=== PATIENT | male | born 1980 | race African-American/Black ===

== ENCOUNTER 2017-04-09 12:11 | Day surgery (SDC) | payer BC ==
[~2017-04-09 12:11] MED LIST: Lactated Ringers 1,000 ML IV SCH; Lidocaine 2% 5 ML SDV ONE; Propofol 200 MG/20 ML SDV ONE; fentaNYL 100 MCG/2 ML SDV ONE
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
--- NOTE | 2017-04-09 13:00 | PCM.OPNOTE ---
- General Post-Op/Procedure Note Date of Surgery/Procedure: 04/09/17 Operative Procedure(s): colonoscopy w bx Findings: see dict [id number] Pre Op Diagnosis: recurrent diverticulitis Post-Op Diagnosis: hemorrhoid Anesthesia Technique: Moderate sedation Primary Surgeon: Russell Christy Pathology: random colon bx; and bx at 25 cm when scope out for hyperemic Complications: None Condition: Good
[2017-04-09] MEDS ORDERED: fentaNYL 100 MCG/2 ML SDV ONE (13:11)
[2017-04-09] MEDS ORDERED: Propofol 200 MG/20 ML SDV ONE (13:13)
--- NOTE | 2017-04-09 13:34 | PCM.POSTAN ---
POST ANESTHESIA ASSESSMENT - MENTAL STATUS Mental Status: alert, oriented - RESPIRATORY Respiratory Status: respiratory rate WNL, airway patent, O2 saturation stable - CARDIOVASCULAR CV Status: pulse rate WNL, blood pressure stable - GASTROINTESTINAL GI Status: no symptoms - PAIN Pain Score: 0 - POST OP HYDRATION Hydration Status: adequate & stable
[2017-04-09 14:23] VITALS: BP 127/81
--- NOTE | 2017-04-09 18:32 | OR ---
SURGEON: Russell Christy MD DATE OF PROCEDURE: 04/09/2017 PREOPERATIVE DIAGNOSIS: Recurrent diverticulitis. POSTOPERATIVE DIAGNOSIS: External hemorrhoid. PROCEDURE PERFORMED: Colonoscopy with biopsy. FINDINGS: 1. The patient is easily sedated with SKIFF OPERATOR and Diprivan. The patient is soundly snoring. 2. Bowel prep is average to above average, very little liquid stool. 3. Colon was rather straight forward. Cecum indicated by ileocecal fold, one- to-one indentation, light immittance, and appendiceal orifice. Mucosa was examined upon scope pulling out. The patient has very mild colonic diverticulosis on the left colon. Otherwise, no polyp, mass, growth, inflammation, stricture, ulceration, bleeding, and at around 25 cm on the left colon, there was a little hyperemic biopsy done and also random biopsy done. The patient does not have internal hemorrhoids. The patient has mild external hemorrhoids. The patient would benefit from repeat colonoscopy 10 years from today or if clinically indicated otherwise, or if the biopsy indicated otherwise. DESCRIPTION OF PROCEDURE: The patient was taken to the endoscopy room. A time out was called, patient identified, and procedure identified. Diprivan was then administrated. Patient went from awake to sleep, hearing doctor talking or door closing is normal. Perineum inspection and digital examination were then performed. A well- lubricated colonoscope was gently inserted through the rectum, advanced past the rectosigmoid junction, the descending colon, splenic flexure, transverse colon, hepatic flexure, ascending colon, arrived to the cecum. Cecum was identified as dictated in the finding. Then the scope was carefully withdrawn while attention was paid to the mucosal surface for any abnormality. Air will be sucked out during the scope withdrawal. At the rectum, retroflexed to examine any rectal diseases, fistula or hemorrhoids. During mucosal examination, abnormality or polyp was noted; picture taken and biopsy performed. Patient tolerated procedure well. There were no intraoperative complications, and Dr. Christy was present throughout the whole procedure. As always, thank you for the kind referral. DENA / CHRISTINA /[id number]
== END 2017-04-09 14:22 | disposition home or self-care (01) ==
LOC: MW.SDS 12:11
PROVIDERS: ATTEND Surgery
DX: K31.89 Other diseases of stomach and duodenum (principal); I10 Essential (primary) hypertension; K64.4 Residual hemorrhoidal skin tags; K21.9 Gastro-esophageal reflux disease without esophagitis; E66.9 Obesity, unspecified; Z79.899 Other long term (current) drug therapy; Z98.890 Other specified postprocedural states; Z78.9 Other specified health status; F17.210 Nicotine dependence, cigarettes, uncomplicated; Z68.30 Body mass index [BMI] 30.0-30.9, adult
CPT/HCPCS: 45380; J3010; 88305; J2704

== ENCOUNTER 2017-12-01 17:16 | Inpatient (IN) | payer BC ==
[2017-12-01] MEDS ORDERED: Sodium Chloride 0.9% 2.5 ML Syringe FLUSH PRN (17:41)
[2017-12-01] MEDS ORDERED: Sodium Chloride 0.9% 1,000 ML IV ONE (17:41)
[2017-12-01] MEDS ORDERED: Sodium Chloride 0.9% 10 ML Syringe FLUSH PRN (17:41)
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
[2017-12-01 18:34] LABS: CHLORIDE,CL 107 mmol/L (98-110); SODIUM,NA 139 mmol/L (136-146)
[2017-12-01] MEDS ORDERED: Levofloxacin/Dextrose 5%-Water 750 MG in Premix Bag 1 BAG IV ONE (19:06)
[2017-12-01] MEDS ORDERED: metroNIDAZOLE/Normal Saline 500 MG in Premix Bag 1 BAG IV ONE (19:06)
[2017-12-01] MEDS ORDERED: HYDROmorphone 2 MG/ML Syringe IVPUSH ONE (19:10)
[2017-12-01] MEDS ORDERED: Ondansetron 4 MG/2 ML SDV IVPUSH ONE (19:10)
[2017-12-01] MEDS: HYDROmorphone 2 MG/ML Syringe IVPUSH PRN (22:30)
[2017-12-01] MEDS: Sodium Chloride 0.9% 1,000 ML IV SCH (22:33)
--- NOTE | 2017-12-01 22:51 | PCM.SN ---
- Free Text/Narrative Note: pt seen and examined, chart reviewed; another episode of diverticulitis flare up , now with "phlemontous inflammatory reaction" 1) npo w iv fluid and ppi 2) iv flagyl and levaquine 3) chat with intervention radiology see whether the plemon is amendable to ct guide drainage 4) will follow w you 5) if response with iv abx, will then start po diet; and dc home w at least 2 wks of po abx 6) fu colonoscopy 3 - 6 mos tks for the cx and care of this nice gentleman
[2017-12-01] MEDS: metroNIDAZOLE/Normal Saline 500 MG in Premix Bag 1 BAG IV SCH (22:54)
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
[2017-12-02] MEDS: HYDROmorphone 2 MG/ML Syringe IVPUSH PRN ×6 (04:23→21:24)
[2017-12-02] MEDS: amLODIPine 2.5 MG Tab PO SCH ×3 (05:28→21:29)
[2017-12-02] MEDS: metroNIDAZOLE/Normal Saline 500 MG in Premix Bag 1 BAG IV SCH ×3 (05:29→23:15)
[2017-12-02 06:42] LABS: CHLORIDE,CL 109 mmol/L (98-110); SODIUM,NA 139 mmol/L (136-146)
[2017-12-02] MEDS: Sodium Chloride 0.9% 1,000 ML IV SCH ×2 (06:51→14:47)
[2017-12-02] MEDS: Enoxaparin 40 MG/0.4 ML Syringe SUBCUT SCH (08:30)
--- NOTE | 2017-12-02 08:50 | PCM.PN ---
- General Info Date of Service: 12/02/17 Admission Dx/Problem (Free Text): Sigmoid diverticulitis Subjective Update: Continues to have pain to LLQ, slightly improved from admission. No N/V. He is passing flatus and had BM this am. No chest pain or SOB. Functional Status: Reports: Pain Controlled, Ambulating, Urinating - Review of Systems General: Reports: No Symptoms. Denies: Fever, Malaise Pulmonary: Reports: No Symptoms. Denies: Shortness of Breath Cardiovascular: Reports: No Symptoms. Denies: Chest Pain Gastrointestinal: Reports: Abdominal Pain (LLQ), Flatus. Denies: Nausea, Vomiting Genitourinary: Reports: No Symptoms. Denies: Dysuria, Frequency Musculoskeletal: Reports: No Symptoms Skin: Reports: No Symptoms Neurological: Reports: No Symptoms Psychiatric: Reports: No Symptoms - Patient Data Vitals - Most Recent: Last Vital Signs Temp 97.0 F 12/02/17 08:00 Pulse 65 12/02/17 08:00 Resp 22 H 12/02/17 08:00 BP 146/86 H 12/02/17 08:00 Pulse Ox 98 12/02/17 08:00 Weight - Most Recent: 113.398 kg I&O - Last 24 Hours: Intake & Output 12/01/17 12/02/17 12/02/17 22:59 06:59 14:59 Intake Total 646 Output Total 550 Balance 96 Lab Results Last 24 Hours: Laboratory Results - last 24 hr 12/02/17 12/02/17 Range/Units 05:43 05:43 WBC 7.81 (4.0-11.0) K/uL RBC 4.61 (4.50-5.90) M/uL Hgb 13.9 (13.0-17.0) g/dL Hct 42.7 (38.0-50.0) % MCV 92.6 (80.0-98.0) fL MCH 30.2 (27.0-32.0) pg MCHC 32.6 (31.0-37.0) g/dL RDW Std Deviation 48.8 (28.0-62.0) fl RDW Coeff of [place] 15 (11.0-15.0) % Plt Count 315 (150-400) K/uL MPV 11.10 (7.40-12.00) fL Neut % (Auto) 71.4 (48.0-80.0) % Lymph % (Auto) 18.1 (16.0-40.0) % [place] % (Auto) 8.7 (0.0-15.0) % Eos % (Auto) 1.5 (0.0-7.0) % Baso % (Auto) 0.3 (0.0-1.5) % Neut # (Auto) 5.6 (1.4-5.7) K/uL Lymph # (Auto) 1.4 (0.6-2.4) K/uL [place] # (Auto) 0.7 (0.0-0.8) K/uL Eos # (Auto) 0.1 (0.0-0.7) K/uL Baso # (Auto) 0.0 (0.0-0.1) K/uL Nucleated RBC % 0.0 /100WBC Nucleated RBCs # 0 K/uL Sodium 139 (136-146) mmol/L Potassium 4.3 (3.5-5.1) mmol/L Chloride 109 (98-110) mmol/L Carbon Dioxide 25 (21-31) mmol/L BUN 9 (6.0-23.0) mg/dL Creatinine 1.1 (0.6-1.5) mg/dL Est Cr Clr Drug Dosing 84.92 mL/min Estimated GFR (MDRD) > 60.0 ml/min Glucose 89 (60-110) mg/dL Calcium 8.5 L (8.8-10.8) mg/dL Med Orders - Current: Current Medications Amlodipine Besylate (Norvasc) 2.5 mg PO TID [facility] Last Admin: 12/02/17 05:28 Dose: 2.5 mg Enoxaparin Sodium (Lovenox) 40 mg SUBCUT DAILY [facility] Last Admin: 12/02/17 08:30 Dose: 40 mg Hydromorphone HCl (Dilaudid) 1 mg IVPUSH Q3H PRN PRN Reason: Pain Last Admin: 12/02/17 07:39 Dose: 1 mg Levofloxacin/Dextrose 750 mg/ (Premix) 150 mls @ 100 mls/hr IV Q24H [facility] Metronidazole 500 mg/ Premix 100 mls @ 100 mls/hr IV Q8H [facility] Last Admin: 12/02/17 05:29 Dose: 100 mls/hr Sodium Chloride (Normal Saline) 1,000 mls @ 125 mls/hr IV ASDIRECTED NIKHIL Last Admin: 12/02/17 06:51 Dose: 125 mls/hr Ondansetron HCl (Zofran) 4 mg IVPUSH Q4H PRN PRN Reason: Nausea/Vomiting Sodium Chloride (Saline Flush) 10 ml FLUSH ASDIRECTED PRN PRN Reason: Keep Vein Open Last Admin: 12/01/17 18:06 Dose: 10 ml Sodium Chloride (Saline Flush) 2.5 ml FLUSH ASDIRECTED PRN PRN Reason: Keep Vein Open Last Admin: 12/01/17 18:06 Dose: 2.5 ml Discontinued Medications Hydromorphone HCl (Dilaudid) 1 mg IVPUSH ONETIME ONE Stop: 12/01/17 19:11 Last Admin: 12/01/17 19:21 Dose: 1 mg Sodium Chloride (Normal Saline) 1,000 mls @ 999 mls/hr IV STAT ONE Stop: 12/01/17 18:41 Last Admin: 12/01/17 18:06 Dose: 999 mls/hr Levofloxacin/Dextrose 750 mg/ (Premix) 150 mls @ 100 mls/hr IV ONETIME ONE Stop: 12/01/17 20:35 Last Admin: 12/01/17 19:23 Dose: 100 mls/hr Metronidazole 500 mg/ Premix 100 mls @ 100 mls/hr IV ONETIME ONE Stop: 12/01/17 20:05 Last Admin: 12/01/17 19:23 Dose: 100 mls/hr Ondansetron HCl (Zofran) 4 mg IVPUSH ONETIME ONE Stop: 12/01/17 19:11 Last Admin: 12/01/17 19:21 Dose: 4 mg - Exam General: Alert, Oriented, Cooperative, No Acute Distress Neck: Supple Lungs: Clear to Auscultation, Normal Respiratory Effort Cardiovascular: Regular Rate, Regular Rhythm GI/Abdominal Exam: Normal Bowel Sounds, Soft, Distended, Tender (LLQ) Extremities: Normal Inspection, Normal Range of Motion, Non-Tender, No Pedal Edema, Normal Capillary Refill Neurological: No New Focal Deficit Psy/Mental Status: Alert, Normal Affect, Normal Mood - Problem List & Annotations (1) Sigmoid diverticulitis SNOMED Code(s): 699909755 Code(s): K57.32 - DVTRCLI OF LG INT W/O PERFORATION OR ABSCESS W/O BLEEDING Status: Acute Current Visit: Yes (2) Abdominal pain SNOMED Code(s): 50159819 Code(s): R10.9 - UNSPECIFIED ABDOMINAL PAIN Status: Acute Current Visit: Yes Qualifiers: Abdominal location: left lower quadrant Qualified Code(s): R10.32 - Left lower quadrant pain - Problem List Review Problem List Initiated/Reviewed/Updated: Yes - Plan Plan:: 37 yo male admitted for acute diverticulitis which failed outpatient management. 1. Sigmoid diverticulitis: Dr Christy consulted. Scant improvement overnight. Continue IV Flagyl and Levaquin. Keep NPO until pain free. Stool studies negative for Cdiff and campylobacter, Positive for WBCs. CT revealed "Marked wall thickening involving a long segment of the mid and proximal sigmoid colon with prominent surrounding phlegmonous stranding and moderate amounts of fluid. Underlying diverticula in this region. Findings consistent with acute diverticulitis but given the marked soft tissue prominence and wall thickening involving the affected segment of sigmoid colon the differential diagnostic consideration of a colonic mass which is mildly perforated such as a neoplasm cannot be excluded and therefore followup imaging or endoscopy is recommended after treatment." Dr Christy reported he will contact radiologist regarding report. He feels from his review of CT, there is no collection to drain, but awaiting Radiology. Dr Christy will notify Hospitalist team with any recommendations. 2. Possible UTI: CT scan suggested possible superimposed acute cystits so will get urine cultures. Asymptomatic. Levaquin as above. UC pending. VTE prophylaxis: Lovenox Dispo: 2-4 days pendinn improvement.
--- NOTE | 2017-12-02 13:47 | PCM.SURGPN ---
- General Info Date of Service: 12/02/17 Admission Diagnosis/Problem: Pain Pain Score: 4 - Review of Systems Gastrointestinal: Reports: No Symptoms - Patient Data Vitals - Most Recent: Last Vital Signs Temp 97.4 F 12/02/17 11:54 Pulse 54 L 12/02/17 11:54 Resp 20 12/02/17 11:54 BP 111/67 12/02/17 11:54 Pulse Ox 100 12/02/17 11:54 Weight - Most Recent: 250 lb I&O - Last 24 Hours: Intake & Output 12/01/17 12/02/17 12/02/17 22:59 06:59 14:59 Intake Total 646 Output Total 550 Balance 96 Lab Results Last 24 Hrs: Laboratory Results - last 24 hr 12/02/17 12/02/17 Range/Units 05:43 05:43 WBC 7.81 (4.0-11.0) K/uL RBC 4.61 (4.50-5.90) M/uL Hgb 13.9 (13.0-17.0) g/dL Hct 42.7 (38.0-50.0) % MCV 92.6 (80.0-98.0) fL MCH 30.2 (27.0-32.0) pg MCHC 32.6 (31.0-37.0) g/dL RDW Std Deviation 48.8 (28.0-62.0) fl RDW Coeff of [place] 15 (11.0-15.0) % Plt Count 315 (150-400) K/uL MPV 11.10 (7.40-12.00) fL Neut % (Auto) 71.4 (48.0-80.0) % Lymph % (Auto) 18.1 (16.0-40.0) % [place] % (Auto) 8.7 (0.0-15.0) % Eos % (Auto) 1.5 (0.0-7.0) % Baso % (Auto) 0.3 (0.0-1.5) % Neut # (Auto) 5.6 (1.4-5.7) K/uL Lymph # (Auto) 1.4 (0.6-2.4) K/uL [place] # (Auto) 0.7 (0.0-0.8) K/uL Eos # (Auto) 0.1 (0.0-0.7) K/uL Baso # (Auto) 0.0 (0.0-0.1) K/uL Nucleated RBC % 0.0 /100WBC Nucleated RBCs # 0 K/uL Sodium 139 (136-146) mmol/L Potassium 4.3 (3.5-5.1) mmol/L Chloride 109 (98-110) mmol/L Carbon Dioxide 25 (21-31) mmol/L BUN 9 (6.0-23.0) mg/dL Creatinine 1.1 (0.6-1.5) mg/dL Est Cr Clr Drug Dosing 84.92 mL/min Estimated GFR (MDRD) > 60.0 ml/min Glucose 89 (60-110) mg/dL Calcium 8.5 L (8.8-10.8) mg/dL [place] Results Last 24 Hrs: Microbiology 12/02/17 07:45 Campylobacter Antigen Assay - Final Stool / Feces NEGATIVE CAMPYLOBACTER AG 12/02/17 07:45 Clostridium difficile Toxin A&B (M) - Final Stool / Feces Negative for C.Diff Toxin/AG 12/02/17 07:45 Stool for WBCs - Final Stool / Feces POSITIVE FOR WBC'S Med Orders - Current: Current Medications Amlodipine Besylate (Norvasc) 2.5 mg PO TID [facility] Last Admin: 12/02/17 05:28 Dose: 2.5 mg Enoxaparin Sodium (Lovenox) 40 mg SUBCUT DAILY [facility] Last Admin: 12/02/17 08:30 Dose: 40 mg Hydromorphone HCl (Dilaudid) 1 mg IVPUSH Q3H PRN PRN Reason: Pain Last Admin: 12/02/17 10:48 Dose: 1 mg Levofloxacin/Dextrose 750 mg/ (Premix) 150 mls @ 100 mls/hr IV Q24H [facility] Metronidazole 500 mg/ Premix 100 mls @ 100 mls/hr IV Q8H [facility] Last Admin: 12/02/17 05:29 Dose: 100 mls/hr Sodium Chloride (Normal Saline) 1,000 mls @ 125 mls/hr IV ASDIRECTED [facility] Last Admin: 12/02/17 06:51 Dose: 125 mls/hr Ondansetron HCl (Zofran) 4 mg IVPUSH Q4H PRN PRN Reason: Nausea/Vomiting Sodium Chloride (Saline Flush) 10 ml FLUSH ASDIRECTED PRN PRN Reason: Keep Vein Open Last Admin: 12/01/17 18:06 Dose: 10 ml Sodium Chloride (Saline Flush) 2.5 ml FLUSH ASDIRECTED PRN PRN Reason: Keep Vein Open Last Admin: 12/01/17 18:06 Dose: 2.5 ml Discontinued Medications Hydromorphone HCl (Dilaudid) 1 mg IVPUSH ONETIME ONE Stop: 12/01/17 19:11 Last Admin: 12/01/17 19:21 Dose: 1 mg Sodium Chloride (Normal Saline) 1,000 mls @ 999 mls/hr IV STAT ONE Stop: 12/01/17 18:41 Last Admin: 12/01/17 18:06 Dose: 999 mls/hr Levofloxacin/Dextrose 750 mg/ (Premix) 150 mls @ 100 mls/hr IV ONETIME ONE Stop: 12/01/17 20:35 Last Admin: 12/01/17 19:23 Dose: 100 mls/hr Metronidazole 500 mg/ Premix 100 mls @ 100 mls/hr IV ONETIME ONE Stop: 12/01/17 20:05 Last Admin: 12/01/17 19:23 Dose: 100 mls/hr Ondansetron HCl (Zofran) 4 mg IVPUSH ONETIME ONE Stop: 12/01/17 19:11 Last Admin: 12/01/17 19:21 Dose: 4 mg - Exam General: Alert, Oriented GI/Abdominal Exam: Soft (tenderness at lower Left Quad, no rebound) - Problem List Review Problem List Initiated/Reviewed/Updated: Yes - My Orders Last 24 Hours: Active Orders 24 hr Category Date Time Status Antiembolic Devices [RC] PER UNIT ROUTINE Care 12/02/17 01:08 Active Oxygen Therapy [RC] PRN Care 12/02/17 01:07 Active Up ad Aletha [RC] ASDIRECTED Care 12/02/17 01:07 Active VTE/DVT Education [RC] PER UNIT ROUTINE Care 12/02/17 01:07 Active Vital Signs [RC] Q4H Care 12/02/17 01:07 Active Nothing per Oral Now Diet [DIET] Diet 12/02/17 Breakfast Active BMP [BASIC METABOLIC PANEL,BMP] [CHEM] AM Lab 12/03/17 05:11 Ordered BMP [BASIC METABOLIC PANEL,BMP] [CHEM] AM Lab 12/04/17 05:11 Ordered BMP [BASIC METABOLIC PANEL,BMP] [CHEM] AM Lab 12/05/17 05:11 Ordered CBC WITH AUTO DIFF [HEME] AM Lab 12/03/17 05:11 Ordered CBC WITH AUTO DIFF [HEME] AM Lab 12/04/17 05:11 Ordered CBC WITH AUTO DIFF [HEME] AM Lab 12/05/17 05:11 Ordered CULTURE STOOL + CAMPY+SHIGATOX [RM] Routine Lab 12/02/17 07:45 Results CULTURE URINE [RM] Routine Lab 12/01/17 17:56 Received Enoxaparin [Lovenox] Med 12/02/17 09:00 Active 40 mg SUBCUT DAILY HYDROmorphone [Dilaudid] Med 12/01/17 22:06 Active 1 mg IVPUSH Q3H PRN Levofloxacin/Dextrose 5%-Water [Levaquin in D5W 750 MG/ Med 12/02/17 22:15 Active 150 ML] 750 mg Premix Bag 1 bag IV Q24H Ondansetron [Zofran] Med 12/01/17 22:08 Active 4 mg IVPUSH Q4H PRN Sodium Chloride 0.9% [Normal Saline] 1,000 ml Med 12/01/17 22:15 Active IV ASDIRECTED amLODIPine [Norvasc] Med 12/02/17 06:00 Active 2.5 mg PO TID metroNIDAZOLE/Normal Saline [Flagyl 500 MG in NS 100 ML Med 12/01/17 22:15 Active ] 500 mg Premix Bag 1 bag IV Q8H Sequential Compression Device [OM.PC] Per Unit Routine Oth 12/02/17 01:08 Ordered Resuscitation Status Routine Resus Stat 12/02/17 01:07 Ordered Medication Orders Amlodipine Besylate (Norvasc) 2.5 mg PO TID [facility] Last Admin: 12/02/17 05:28 Dose: 2.5 mg Enoxaparin Sodium (Lovenox) 40 mg SUBCUT DAILY [facility] Last Admin: 12/02/17 08:30 Dose: 40 mg Hydromorphone HCl (Dilaudid) 1 mg IVPUSH Q3H PRN PRN Reason: Pain Last Admin: 12/02/17 10:48 Dose: 1 mg Admin: 12/02/17 07:39 Dose: 1 mg Admin: 12/02/17 04:23 Dose: 1 mg Admin: 12/01/17 22:30 Dose: 1 mg Levofloxacin/Dextrose 750 mg/ (Premix) 150 mls @ 100 mls/hr IV Q24H [facility] Metronidazole 500 mg/ Premix 100 mls @ 100 mls/hr IV Q8H [facility] Last Admin: 12/02/17 05:29 Dose: 100 mls/hr Admin: 12/01/17 22:54 Dose: Sodium Chloride (Normal Saline) 1,000 mls @ 125 mls/hr IV ASDIRECTED [facility] Last Admin: 12/02/17 06:51 Dose: 125 mls/hr Infusion: 12/02/17 06:33 Dose: 125 mls/hr Admin: 12/01/17 22:33 Dose: 125 mls/hr Ondansetron HCl (Zofran) 4 mg IVPUSH Q4H PRN PRN Reason: Nausea/Vomiting Sodium Chloride (Saline Flush) 10 ml FLUSH ASDIRECTED PRN PRN Reason: Keep Vein Open Last Admin: 12/01/17 18:06 Dose: 10 ml Sodium Chloride (Saline Flush) 2.5 ml FLUSH ASDIRECTED PRN PRN Reason: Keep Vein Open Last Admin: 12/01/17 18:06 Dose: 2.5 ml - Assessment Assessment (Free Text/Narrative):: will check w radiologist see whether it can be drained; continue iv abx/npo - Plan Plan (Free Text/Narrative):: will check w radiologist see whether it can be drained; continue iv abx/npo
--- NOTE | 2017-12-02 16:45 | CT ---
EXAM DATE: 12/01/17 PATIENT'S AGE: 37 Patient: EMILIA BRAMBILA Facility: [place], [place] Site . Site : 1980 Study: CT Abdomen/Pelvis WO CONT [id number]/28/2018 6:44:29 PM Ordering Physician: Ronaldo Staley Final Report: Indication : Left-sided abdominal and lower back pain. TECHNIQUE: CT of abdomen pelvis performed without oral IV contrast. 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 Mild scarring and atelectasis in the right middle lobe. Left hepatic lobe is somewhat atrophic. Small hiatal hernia. Lobulated left kidney with moderately prominent areas of scarring and cortical thinning. Multiple stones within calices of the left kidney. Mild stranding about the left kidney and urinary bladder which has mildly thickened wall. Findings suggest acute cystitis and ascending urinary tract infection such as acute pyelitis/pyelonephritis. Clinical and laboratory correlation recommended. Small left inguinal hernia containing only fat. Marked wall thickening involving a long segment of the mid and proximal sigmoid colon over 12-13 cm with surrounding moderate amounts moderately prominent amounts of phlegmonous inflammatory stranding and fluid. Some diverticula are seen in this region. Mild lymph node prominence in the surrounding sigmoid mesentery. No discrete abscess or free air. Findings would be consistent with acute diverticulitis however the prominent wall thickening and soft tissue prominence involving the affected segment of sigmoid colon is more prominent than typical and thus follow-up is recommended to exclude an underlying colonic and lesion or neoplasm which has mildly perforated. The inflammatory disease surrounding the sigmoid colon abuts the urinary bladder and is likely the cause of the cystitis. No air in the urinary bladder to suggest fistula at this time. Mildly enlarged lymph node along the left distal external iliac chain on image 112 may be related to the colonic pathology. Small lymph nodes in the abdominal and pelvic retroperitoneum elsewhere. Remainder negative. IMPRESSION: 1. Marked wall thickening involving a long segment of the mid and proximal sigmoid colon with prominent surrounding phlegmonous stranding and moderate amounts of fluid. Underlying diverticula in this region. Findings consistent with acute diverticulitis but given the marked soft tissue prominence and wall thickening involving the affected segment of sigmoid colon the differential diagnostic consideration of a colonic mass which is mildly perforated such as a neoplasm cannot be excluded and therefore followup imaging or endoscopy is recommended after treatment. 2. Mild lymph node prominence in the left external iliac chain and sigmoid mesentery likely related to the colonic pathology. 3. Mild soft tissue stranding about the urinary bladder and left kidney with urinary bladder wall being slightly irregular and thickened. Findings suggest superimposed acute cystitis and ascending left urinary tract infection such as acute pyelitis/pyelonephritis. 4. Lobulated appearance of the left kidney consistent with moderate to marked cortical thinning and scarring. 5. Multiple stones in the left kidney. 6. Other findings as above. Please note that all CT scans at this facility use dose modulation, iterative reconstruction, and/or weight-based dosing when appropriate to reduce radiation dose to as low as reasonably achievable. Dictated by Abimael Terry MD @ Dec 01 2017 6:52PM (Electronic Signature) Report Signed by Proxy. MTDD
[2017-12-02] MEDS: Levofloxacin/Dextrose 5%-Water 750 MG in Premix Bag 1 BAG IV SCH (21:30)
[2017-12-03] MEDS: HYDROmorphone 2 MG/ML Syringe IVPUSH PRN ×7 (00:32→21:07)
[2017-12-03] MEDS: Sodium Chloride 0.9% 1,000 ML IV SCH ×3 (00:37→18:47)
[2017-12-03 05:52] LABS: CHLORIDE,CL 106 mmol/L (98-110); SODIUM,NA 139 mmol/L (136-146)
[2017-12-03] MEDS: amLODIPine 2.5 MG Tab PO SCH ×3 (06:40→21:08)
[2017-12-03] MEDS: metroNIDAZOLE/Normal Saline 500 MG in Premix Bag 1 BAG IV SCH ×3 (06:40→21:14)
--- NOTE | 2017-12-03 08:16 | PCM.PN ---
- General Info Date of Service: 12/03/17 Admission Dx/Problem (Free Text): Sigmoid diverticulitis Subjective Update: Pain improving to LLQ, now 6/10 was 10/10 most yesterday per patient. No N/V. He is passing flatus. No chest pain or SOB. Functional Status: Reports: Pain Controlled, Tolerating Diet, Ambulating, Urinating - Review of Systems Pulmonary: Reports: No Symptoms. Denies: Shortness of Breath Cardiovascular: Reports: No Symptoms. Denies: Chest Pain Gastrointestinal: Reports: Abdominal Pain (LLQ, but improved greatly from yesterday.), Flatus. Denies: Constipation, Diarrhea, Nausea, Vomiting Genitourinary: Reports: No Symptoms. Denies: Dysuria, Frequency, Burning, Pain Musculoskeletal: Reports: No Symptoms Neurological: Reports: No Symptoms Psychiatric: Reports: No Symptoms - Patient Data Vitals - Most Recent: Last Vital Signs Temp 98.1 F 12/03/17 07:45 Pulse 69 12/03/17 07:45 Resp 18 12/03/17 07:45 BP 134/78 12/03/17 07:45 Pulse Ox 95 12/03/17 07:45 Weight - Most Recent: 113.398 kg I&O - Last 24 Hours: Intake & Output 12/02/17 12/03/17 12/03/17 22:59 06:59 14:59 Intake Total 1384 885 Output Total 1300 1200 Balance 84 -315 Lab Results Last 24 Hours: Laboratory Results - last 24 hr 12/03/17 12/03/17 Range/Units 05:08 05:08 WBC 10.19 (4.0-11.0) K/uL RBC 4.60 (4.50-5.90) M/uL Hgb 13.9 (13.0-17.0) g/dL Hct 42.4 (38.0-50.0) % MCV 92.2 (80.0-98.0) fL MCH 30.2 (27.0-32.0) pg MCHC 32.8 (31.0-37.0) g/dL RDW Std Deviation 48.7 (28.0-62.0) fl RDW Coeff of [place] 14 (11.0-15.0) % Plt Count 324 (150-400) K/uL MPV 11.10 (7.40-12.00) fL Neut % (Auto) 84.4 H (48.0-80.0) % Lymph % (Auto) 7.9 L (16.0-40.0) % [place] % (Auto) 6.8 (0.0-15.0) % Eos % (Auto) 0.7 (0.0-7.0) % Baso % (Auto) 0.2 (0.0-1.5) % Neut # (Auto) 8.6 H (1.4-5.7) K/uL Lymph # (Auto) 0.8 (0.6-2.4) K/uL [place] # (Auto) 0.7 (0.0-0.8) K/uL Eos # (Auto) 0.1 (0.0-0.7) K/uL Baso # (Auto) 0.0 (0.0-0.1) K/uL Nucleated RBC % 0.0 /100WBC Nucleated RBCs # 0 K/uL Sodium 139 (136-146) mmol/L Potassium 4.6 (3.5-5.1) mmol/L Chloride 106 (98-110) mmol/L Carbon Dioxide 25 (21-31) mmol/L BUN 12 (6.0-23.0) mg/dL Creatinine 1.1 (0.6-1.5) mg/dL Est Cr Clr Drug Dosing 84.92 mL/min Estimated GFR (MDRD) > 60.0 ml/min Glucose 76 (60-110) mg/dL Calcium 8.8 (8.8-10.8) mg/dL Segundo Results Last 24 Hours: Microbiology 12/02/17 07:45 Campylobacter Antigen Assay - Final Stool / Feces NEGATIVE CAMPYLOBACTER AG 12/02/17 07:45 Clostridium difficile Toxin A&B (M) - Final Stool / Feces Negative for C.Diff Toxin/AG 12/02/17 07:45 Stool for WBCs - Final Stool / Feces POSITIVE FOR WBC'S Med Orders - Current: Current Medications Amlodipine Besylate (Norvasc) 2.5 mg PO TID [facility] Last Admin: 12/03/17 06:40 Dose: 2.5 mg Enoxaparin Sodium (Lovenox) 40 mg SUBCUT DAILY [facility] Last Admin: 12/02/17 08:30 Dose: 40 mg Hydromorphone HCl (Dilaudid) 1 mg IVPUSH Q3H PRN PRN Reason: Pain Last Admin: 12/03/17 06:40 Dose: 1 mg Levofloxacin/Dextrose 750 mg/ (Premix) 150 mls @ 100 mls/hr IV Q24H [facility] Last Admin: 12/02/17 21:30 Dose: 100 mls/hr Metronidazole 500 mg/ Premix 100 mls @ 100 mls/hr IV Q8H [facility] Last Admin: 12/03/17 06:40 Dose: 100 mls/hr Sodium Chloride (Normal Saline) 1,000 mls @ 125 mls/hr IV ASDIRECTED [facility] Last Admin: 12/03/17 00:37 Dose: 125 mls/hr Ondansetron HCl (Zofran) 4 mg IVPUSH Q4H PRN PRN Reason: Nausea/Vomiting Sodium Chloride (Saline Flush) 10 ml FLUSH ASDIRECTED PRN PRN Reason: Keep Vein Open Last Admin: 12/01/17 18:06 Dose: 10 ml Sodium Chloride (Saline Flush) 2.5 ml FLUSH ASDIRECTED PRN PRN Reason: Keep Vein Open Last Admin: 12/01/17 18:06 Dose: 2.5 ml Discontinued Medications Hydromorphone HCl (Dilaudid) 1 mg IVPUSH ONETIME ONE Stop: 12/01/17 19:11 Last Admin: 12/01/17 19:21 Dose: 1 mg Sodium Chloride (Normal Saline) 1,000 mls @ 999 mls/hr IV STAT ONE Stop: 12/01/17 18:41 Last Admin: 12/01/17 18:06 Dose: 999 mls/hr Levofloxacin/Dextrose 750 mg/ (Premix) 150 mls @ 100 mls/hr IV ONETIME ONE Stop: 12/01/17 20:35 Last Admin: 12/01/17 19:23 Dose: 100 mls/hr Metronidazole 500 mg/ Premix 100 mls @ 100 mls/hr IV ONETIME ONE Stop: 12/01/17 20:05 Last Admin: 12/01/17 19:23 Dose: 100 mls/hr Ondansetron HCl (Zofran) 4 mg IVPUSH ONETIME ONE Stop: 12/01/17 19:11 Last Admin: 12/01/17 19:21 Dose: 4 mg - Exam General: Alert, Oriented, Cooperative, No Acute Distress Neck: Supple Lungs: Clear to Auscultation, Normal Respiratory Effort Cardiovascular: Regular Rate, Regular Rhythm GI/Abdominal Exam: Normal Bowel Sounds, Soft, Tender (scant to LLQ) Extremities: Normal Inspection, Normal Range of Motion, Non-Tender, No Pedal Edema, Normal Capillary Refill Neurological: No New Focal Deficit Psy/Mental Status: Alert, Normal Affect, Normal Mood - Problem List & Annotations (1) Sigmoid diverticulitis SNOMED Code(s): 610725185 Code(s): K57.32 - DVTRCLI OF LG INT W/O PERFORATION OR ABSCESS W/O BLEEDING Status: Acute Current Visit: Yes (2) Abdominal pain SNOMED Code(s): 12782092 Code(s): R10.9 - UNSPECIFIED ABDOMINAL PAIN Status: Acute Current Visit: Yes Qualifiers: Abdominal location: left lower quadrant Qualified Code(s): R10.32 - Left lower quadrant pain - Problem List Review Problem List Initiated/Reviewed/Updated: Yes - My Orders Last 24 Hours: My Active Orders 12/04/17 05:11 BMP [BASIC METABOLIC PANEL,BMP] [CHEM] AM CBC WITH AUTO DIFF [HEME] AM 12/05/17 05:11 BMP [BASIC METABOLIC PANEL,BMP] [CHEM] AM CBC WITH AUTO DIFF [HEME] AM - Plan Plan:: 37 yo male admitted for acute diverticulitis which failed outpatient management. 1. Sigmoid diverticulitis: Continued improvement, pain better, but still needing IV pain medication. Continue NPO until pain free. Continue IV Flagyl and Levaquin. Stool studies negative 2. Possible UTI: Asymptomatic. Levaquin as above. UC pending. VTE prophylaxis: Lovenox Dispo: 2-4 days pending improvement.
[2017-12-03] MEDS: Enoxaparin 40 MG/0.4 ML Syringe SUBCUT SCH (09:01)
[2017-12-03] MEDS: Ondansetron 4 MG/2 ML SDV IVPUSH PRN (21:06)
[2017-12-03] MEDS: Levofloxacin/Dextrose 5%-Water 750 MG in Premix Bag 1 BAG IV SCH (22:12)
[2017-12-04] MEDS: HYDROmorphone 2 MG/ML Syringe IVPUSH PRN ×3 (01:17→10:20)
[2017-12-04 04:41] LABS: CHLORIDE,CL 104 mmol/L (98-110); SODIUM,NA 138 mmol/L (136-146)
[2017-12-04] MEDS: metroNIDAZOLE/Normal Saline 500 MG in Premix Bag 1 BAG IV SCH ×3 (05:30→21:38)
[2017-12-04] MEDS: amLODIPine 2.5 MG Tab PO SCH ×3 (05:31→21:47)
[2017-12-04] MEDS: Ondansetron 4 MG/2 ML SDV IVPUSH PRN (05:32)
[2017-12-04] MEDS: Sodium Chloride 0.9% 1,000 ML IV SCH ×2 (05:34→16:27)
[2017-12-04] MEDS: Enoxaparin 40 MG/0.4 ML Syringe SUBCUT SCH (08:59)
--- NOTE | 2017-12-04 09:38 | CONS ---
DATE OF CONSULTATION: 12/01/2017 DATE OF : 1980 PRIMARY CARE PHYSICIAN: None PCP Consult was called. The patient was seen shortly after. CONCERNING QUESTION: Diverticulitis HISTORY OF PRESENT ILLNESS: The patient is a 37-year-old gentleman, known to my service, had colonoscopy done about 6 months ago by myself and saw a few diverticula, but no signs or symptoms of diverticulitis and admit for recurrent diverticulitis. The patient remarked that he has on and off left lower quadrant pain for a long time like more than 2+ years, pain goes away and come back and goes away and come back, and this time it has been going on for a while. Again, I mean he only noted a while, he cannot say one week, one month, or one year. He went to see a local doctor and was treated with po Flagyl and Levaquin. It does not seem to help and now he is seeking help in the emergency room. Workup included CAT scan, which shows thickening of the bowel wall on the sigmoid colon and with significant phlegmonous inflammatory reaction and also possible left hip disease and possible left urinary tract stones. The patient was then admitted for further management and consult Surgery for help in the management. Currently, the patient still hurting, but doing slightly better. The patient denies fever, nausea, or vomiting. PAST MEDICAL HISTORY: Denied diabetic, [place], CVA. The patient does have hypertension. Denied prior abdominal surgery except for colonoscopy done by myself. PHYSICAL EXAMINATION: GENERAL: Very pleasant gentleman in no acute distress. HEENT: Normocephalic and atraumatic. Sclerae anicteric. LUNGS: Clear to auscultation. HEART: Regular rate and rhythm. ABDOMEN: Soft. Nondistended. No pulsating. Tender in the midline abdominal structure. No surgical scar. Exquisite tenderness on the left lower quadrant very very low, and a little bit high up, he has no pain interesting, but when you turn to the inguinal crease, he is screaming in pain. LABORATORY DATA AND X-RAYS: White count on admission was 11. CAT scan report is pending. IMPRESSION: Friable diverticulitis, likely chronic. On preliminary report, CAT scan does not seem to have perforation. The patient would benefit from management of recurrent diverticulitis by medical treatment, IV Flagyl and Levaquin, Flagyl 500 IV q.i.d. 4 times a day and Levaquin 750 once a day IV antibiotic until pain managed. The patient can then start oral diet and then probably follow with 2 more week of oral antibiotic for a total treatment of 3 weeks. We will review the CAT scan with Radiology tomorrow to see whether phlegmonous inflammatory reaction can be amendable to CT-guided drainage that will help in speed out the surface. For the time being, conservative management, IV antibiotic, n.p.o., IV fluid hydration, and possible CT-guided drainage tomorrow. I also discussed with the patient. If failed medical management, we will have emergency surgery and that is probably Major procedure that will require removal of the diseased colon and give him a colostomy. We address more discussion in this aspect if the patient failed conservative medical management. DENA / CHRISTINA /[id number] SAM
--- NOTE | 2017-12-04 11:36 | PCM.PN ---
- General Info Date of Service: 12/04/17 Admission Dx/Problem (Free Text): Sigmoid diverticulitis Subjective Update: Doing well this morning, pain is improving, but feels he still needs IV pain medication. No increase in pain since CL diet started. No chest pain or SOB. felt some burning at the end of his urine stream today, no penile drainage and no testicular pain. Functional Status: Reports: Tolerating Diet, Ambulating (encouraged to be ambulating more, but nursing reports patient refuses and lays in bed and sleeps) , Urinating. Denies: Pain Controlled - Review of Systems General: Reports: No Symptoms. Denies: Fever, Fatigue, Malaise Pulmonary: Reports: No Symptoms. Denies: Shortness of Breath Cardiovascular: Reports: No Symptoms. Denies: Chest Pain Gastrointestinal: Reports: Abdominal Pain (LLQ, much improved.), Flatus. Denies : Nausea, Vomiting Genitourinary: Reports: Burning. Denies: Dysuria, Frequency, Pain Neurological: Reports: No Symptoms. Denies: Confusion Psychiatric: Reports: No Symptoms. Denies: Confusion - Patient Data Vitals - Most Recent: Last Vital Signs Temp 97.7 F 12/04/17 08:00 Pulse 75 12/04/17 08:00 Resp 18 12/04/17 08:00 BP 114/77 12/04/17 08:00 Pulse Ox 97 12/04/17 08:00 Weight - Most Recent: 113.398 kg I&O - Last 24 Hours: Intake & Output 12/03/17 12/04/17 12/04/17 22:59 06:59 14:59 Intake Total 1012 1340 Output Total 1380 1450 Balance -368 -110 Lab Results Last 24 Hours: Laboratory Results - last 24 hr 12/04/17 12/04/17 Range/Units 03:52 03:52 WBC 10.09 (4.0-11.0) K/uL RBC 4.69 (4.50-5.90) M/uL Hgb 14.3 (13.0-17.0) g/dL Hct 42.8 (38.0-50.0) % MCV 91.3 (80.0-98.0) fL MCH 30.5 (27.0-32.0) pg MCHC 33.4 (31.0-37.0) g/dL RDW Std Deviation 47.1 (28.0-62.0) fl RDW Coeff of [place] 14 (11.0-15.0) % Plt Count 312 (150-400) K/uL MPV 10.80 (7.40-12.00) fL Neut % (Auto) 74.0 (48.0-80.0) % Lymph % (Auto) 14.4 L (16.0-40.0) % [place] % (Auto) 11.1 (0.0-15.0) % Eos % (Auto) 0.3 (0.0-7.0) % Baso % (Auto) 0.2 (0.0-1.5) % Neut # (Auto) 7.5 H (1.4-5.7) K/uL Lymph # (Auto) 1.5 (0.6-2.4) K/uL [place] # (Auto) 1.1 H (0.0-0.8) K/uL Eos # (Auto) 0.0 (0.0-0.7) K/uL Baso # (Auto) 0.0 (0.0-0.1) K/uL Nucleated RBC % 0.0 /100WBC Nucleated RBCs # 0 K/uL Sodium 138 (136-146) mmol/L Potassium 4.8 (3.5-5.1) mmol/L Chloride 104 (98-110) mmol/L Carbon Dioxide 25 (21-31) mmol/L BUN 11 (6.0-23.0) mg/dL Creatinine 1.2 (0.6-1.5) mg/dL Est Cr Clr Drug Dosing 77.84 mL/min Estimated GFR (MDRD) > 60.0 ml/min Glucose 83 (60-110) mg/dL Calcium 9.2 (8.8-10.8) mg/dL Seg[place] Results Last 24 Hours: Microbiology 12/02/17 07:45 Campylobacter Antigen Assay - Final Stool / Feces NEGATIVE CAMPYLOBACTER AG - Final NEGATIVE FOR SHIGA TOXIN 1 - Final NEGATIVE FOR SHIGA TOXIN 2 Med Orders - Current: Current Medications Amlodipine Besylate (Norvasc) 2.5 mg PO TID [facility] Last Admin: 12/04/17 05:31 Dose: 2.5 mg Enoxaparin Sodium (Lovenox) 40 mg SUBCUT DAILY [facility] Last Admin: 12/04/17 08:59 Dose: 40 mg Hydromorphone HCl (Dilaudid) 1 mg IVPUSH Q4H PRN PRN Reason: Pain Last Admin: 12/04/17 10:20 Dose: 1 mg Levofloxacin/Dextrose 750 mg/ (Premix) 150 mls @ 100 mls/hr IV Q24H [facility] Last Admin: 12/03/17 22:12 Dose: 100 mls/hr Metronidazole 500 mg/ Premix 100 mls @ 100 mls/hr IV Q8H [facility] Last Admin: 12/04/17 05:30 Dose: 100 mls/hr Sodium Chloride (Normal Saline) 1,000 mls @ 125 mls/hr IV ASDIRECTED [facility] Last Admin: 12/04/17 05:34 Dose: 125 mls/hr Ondansetron HCl (Zofran) 4 mg IVPUSH Q4H PRN PRN Reason: Nausea/Vomiting Last Admin: 12/04/17 05:32 Dose: 4 mg Sodium Chloride (Saline Flush) 10 ml FLUSH ASDIRECTED PRN PRN Reason: Keep Vein Open Last Admin: 12/01/17 18:06 Dose: 10 ml Sodium Chloride (Saline Flush) 2.5 ml FLUSH ASDIRECTED PRN PRN Reason: Keep Vein Open Last Admin: 12/01/17 18:06 Dose: 2.5 ml Discontinued Medications Hydromorphone HCl (Dilaudid) 1 mg IVPUSH ONETIME ONE Stop: 12/01/17 19:11 Last Admin: 12/01/17 19:21 Dose: 1 mg Hydromorphone HCl (Dilaudid) 1 mg IVPUSH Q3H PRN PRN Reason: Pain Last Admin: 12/03/17 13:32 Dose: 1 mg Sodium Chloride (Normal Saline) 1,000 mls @ 999 mls/hr IV STAT ONE Stop: 12/01/17 18:41 Last Admin: 12/01/17 18:06 Dose: 999 mls/hr Levofloxacin/Dextrose 750 mg/ (Premix) 150 mls @ 100 mls/hr IV ONETIME ONE Stop: 12/01/17 20:35 Last Admin: 12/01/17 19:23 Dose: 100 mls/hr Metronidazole 500 mg/ Premix 100 mls @ 100 mls/hr IV ONETIME ONE Stop: 12/01/17 20:05 Last Admin: 12/01/17 19:23 Dose: 100 mls/hr Ondansetron HCl (Zofran) 4 mg IVPUSH ONETIME ONE Stop: 12/01/17 19:11 Last Admin: 12/01/17 19:21 Dose: 4 mg - Exam General: Alert, Oriented, Cooperative, No Acute Distress Lungs: Clear to Auscultation, Normal Respiratory Effort Cardiovascular: Regular Rate, Regular Rhythm GI/Abdominal Exam: Normal Bowel Sounds, Soft, Non-Tender (no pain ellicted from palpation. ), No Organomegaly, No Distention, No Abnormal Bruit, No Mass, Pelvis Stable Extremities: Normal Inspection, Normal Range of Motion, Non-Tender, No Pedal Edema, Normal Capillary Refill Neurological: No New Focal Deficit Psy/Mental Status: Alert, Normal Affect, Normal Mood - Problem List & Annotations (1) Sigmoid diverticulitis SNOMED Code(s): 028558832 Code(s): K57.32 - DVTRCLI OF LG INT W/O PERFORATION OR ABSCESS W/O BLEEDING Status: Acute Current Visit: Yes (2) Abdominal pain SNOMED Code(s): 62089306 Code(s): R10.9 - UNSPECIFIED ABDOMINAL PAIN Status: Acute Current Visit: Yes Qualifiers: Abdominal location: left lower quadrant Qualified Code(s): R10.32 - Left lower quadrant pain - Problem List Review Problem List Initiated/Reviewed/Updated: Yes - My Orders Last 24 Hours: My Active Orders 12/03/17 16:18 HYDROmorphone [Dilaudid] 1 mg IVPUSH Q4H PRN 12/04/17 Breakfast Clear Liquid Diet [DIET] 12/05/17 05:11 BMP [BASIC METABOLIC PANEL,BMP] [CHEM] AM CBC WITH AUTO DIFF [HEME] AM - Plan Plan:: 37 yo male admitted for acute diverticulitis which failed outpatient management. 1. Sigmoid diverticulitis: Continues to improve today, no pain to palpation. Reports he is still needing pain medications, but pain appears comfortable and sleeping. Will stop IV dilaudid and monitor. FL diet now. Continue IV Flagyl and Levaquin. Stool studies negative 2. Possible UTI: UC mixed lucina 1,000. Some burning today. Continue Levaquin as above. VTE prophylaxis: Lovenox Dispo: later today or in am.
[2017-12-04] MEDS ORDERED: HYDROmorphone 2 MG/ML Syringe IVPUSH ONE (15:57)
[2017-12-04] MEDS: Ketorolac 15 MG/ML SDV IVPUSH PRN (21:37)
[2017-12-04] MEDS: Levofloxacin/Dextrose 5%-Water 750 MG in Premix Bag 1 BAG IV SCH (23:30)
[2017-12-05] MEDS: amLODIPine 2.5 MG Tab PO SCH (05:29)
[2017-12-05] MEDS: metroNIDAZOLE/Normal Saline 500 MG in Premix Bag 1 BAG IV SCH (05:30)
[2017-12-05] MEDS: Sodium Chloride 0.9% 1,000 ML IV SCH (05:38)
[2017-12-05] MEDS: Ketorolac 15 MG/ML SDV IVPUSH PRN (06:31)
--- NOTE | 2017-12-05 07:16 | PCM.DCSUM1 ---
Discharge Summary - Hospital Course Brief History: 37 yo male with pmh of recurrent diverticulitis who has started on ciprofloxacin and flagyl on November 21 for diverticulitis. He presents to the ED tonight with increasing left lower quadrant pain and diarrhea. CT scan of abdomen reports marked wall thickening infolving a long segment of the mid and proximal sigmoid colon with prominent surroundings phlegmonous stranding and moderate amounts of fluid. - Discharge Data Discharge Date: 12/05/17 Discharge Disposition: Home, Self-Care 01 Condition: Stable - Discharge Diagnosis/Problem(s) (1) Sigmoid diverticulitis SNOMED Code(s): 472801307 ICD Code: K57.32 - DVTRCLI OF LG INT W/O PERFORATION OR ABSCESS W/O BLEEDING Status: Acute (2) Abdominal pain SNOMED Code(s): 03104458 ICD Code: R10.9 - UNSPECIFIED ABDOMINAL PAIN Status: Acute Qualifiers: Abdominal location: left lower quadrant Qualified Code(s): R10.32 - Left lower quadrant pain - Patient Instructions Diet: Full Liquid Diet (for next 2-3 days then slowly advance to GI soft, lower fiber for 2 weeks. ), GI Soft/Low Residue/Low Fiber Activity: As Tolerated, No Strenuous Activities, Rest and Relax Today Driving: Do Not Drive Showering/Bathing: May Shower Notify Provider of: Fever, Increased Pain, Swelling and Redness, Drainage, Nausea and/or Vomiting - Discharge Plan Prescriptions/Med Rec: Levofloxacin [Levaquin] 750 mg PO DAILY #11 tab metroNIDAZOLE [Flagyl] 500 mg PO TID #33 tablet Home Medications: Home Meds amLODIPine Besylate [Norvasc] 2.5 mg PO TID 04/04/17 [History] Levofloxacin [Levaquin] 750 mg PO DAILY #11 tab 12/04/17 [Rx] metroNIDAZOLE [Flagyl] 500 mg PO TID #33 tablet 12/04/17 [Rx] Patient Handouts: Diverticulitis, [id number], Levofloxacin tablets, Metronidazole tablets or capsules Referrals: Russell Christy MD [Physician] - 12/18/17 9:15 am (Please arrive 15 minutes early for checking in. ) Antwon Zhao Jr, PA-C [Ordering Only Provider] - 12/11/17 1:30 pm (Please arrive 15 minutes early.) - Discharge Summary/Plan Comment DC Time >30 min.: No Discharge Summary/Plan Comment: Discharge Diagnoses: sigmoid diverticulitis Endy was admitted due to failed outpatient management of sigmoid diverticulitis. He was treated with Levaquin and Flagyl along with bowel rest and pain medication. He continued to improved, Dr Christy general surgery consulted due to CT scant revealing "Marked wall thickening involving a long segment of the mid and proximal sigmoid colon with prominent surrounding phlegmonous stranding and moderate amounts of fluid. Underlying diverticula in this region. Findings consistent with acute diverticulitis but given the marked soft tissue prominence and wall thickening involving the affected segment of sigmoid colon the differential diagnostic consideration of a colonic mass which is mildly perforated such as a neoplasm cannot be excluded and therefore followup imaging or endoscopy is recommended after treatment". No drainage was needed. He was transitioned off pain medications and allowed CL diet. He tolerated well and will be discharged home today. He will be continued on Levaquin 750 mg and Flagyl TID for 11 more days. He will follow up with Dr Christy and have repeat colonoscopy. He is also to follow up with PCP in 1 week to insure he is continuing to improve. He was encouraged to stay FL diet for next few days then slowly transition to GI soft low fiber for next two weeks then to regular, high fiber. He is to return to ED or clinic if concerns should arise. - General Info Date of Service: 12/05/17 Admission Dx/Problem (Free Text: Sigmoid diverticulitis Subjective Update: DOing well this morning, eager for discharge tolerating diet well. No abdominal pain. No chest pain or SOB. passing flatus. Functional Status: Reports: Pain Controlled, Tolerating Diet, Ambulating, Urinating - Review of Systems HEENT: Reports: No Symptoms. Denies: Headaches, Sore Throat, Visual Changes Pulmonary: Reports: No Symptoms. Denies: Shortness of Breath Cardiovascular: Reports: No Symptoms. Denies: Chest Pain, Palpitations Gastrointestinal: Reports: No Symptoms, Flatus. Denies: Abdominal Pain, Nausea , Vomiting Genitourinary: Reports: No Symptoms. Denies: Dysuria, Frequency, Burning Neurological: Reports: No Symptoms. Denies: Confusion Psychiatric: Reports: No Symptoms. Denies: Confusion - Patient Data Vitals - Most Recent: Last Vital Signs Temp 97.2 F 12/05/17 04:00 Pulse 80 12/05/17 04:00 Resp 19 12/05/17 04:00 BP 136/75 12/05/17 05:29 Pulse Ox 97 12/05/17 04:00 Weight - Most Recent: 113.398 kg I&O - Last 24 hours: Intake & Output 12/04/17 12/05/17 12/05/17 22:59 06:59 14:59 Intake Total 2221 1610 Output Total 1250 1700 Balance 971 -90 ELIZABETH Results - Last 24 hrs: Microbiology 12/02/17 07:45 Stool Culture - Final Stool / Feces NO SALMONELLA, SHIGELLA,OR E.COLI O157 ISOLATED Campylobacter Antigen Assay - Final NEGATIVE CAMPYLOBACTER AG - Final NEGATIVE FOR SHIGA TOXIN 1 - Final NEGATIVE FOR SHIGA TOXIN 2 Med Orders - Current: Current Medications Amlodipine Besylate (Norvasc) 2.5 mg PO TID [facility] Last Admin: 12/05/17 05:29 Dose: 2.5 mg Enoxaparin Sodium (Lovenox) 40 mg SUBCUT DAILY [facility] Last Admin: 12/04/17 08:59 Dose: 40 mg Levofloxacin/Dextrose 750 mg/ (Premix) 150 mls @ 100 mls/hr IV Q24H [facility] Last Admin: 12/04/17 23:30 Dose: 100 mls/hr Metronidazole 500 mg/ Premix 100 mls @ 100 mls/hr IV Q8H [facility] Last Admin: 12/05/17 05:30 Dose: 100 mls/hr Sodium Chloride (Normal Saline) 1,000 mls @ 100 mls/hr IV ASDIRECTED [facility] Last Admin: 12/05/17 05:38 Dose: 100 mls/hr Ondansetron HCl (Zofran) 4 mg IVPUSH Q4H PRN PRN Reason: Nausea/Vomiting Last Admin: 12/04/17 05:32 Dose: 4 mg Sodium Chloride (Saline Flush) 10 ml FLUSH ASDIRECTED PRN PRN Reason: Keep Vein Open Last Admin: 12/01/17 18:06 Dose: 10 ml Sodium Chloride (Saline Flush) 2.5 ml FLUSH ASDIRECTED PRN PRN Reason: Keep Vein Open Last Admin: 12/01/17 18:06 Dose: 2.5 ml Discontinued Medications Hydromorphone HCl (Dilaudid) 1 mg IVPUSH ONETIME ONE Stop: 12/01/17 19:11 Last Admin: 12/01/17 19:21 Dose: 1 mg Hydromorphone HCl (Dilaudid) 1 mg IVPUSH Q3H PRN PRN Reason: Pain Last Admin: 12/03/17 13:32 Dose: 1 mg Hydromorphone HCl (Dilaudid) 1 mg IVPUSH Q4H PRN PRN Reason: Pain Last Admin: 12/04/17 10:20 Dose: 1 mg Hydromorphone HCl (Dilaudid) 0.5 mg IVPUSH ONETIME ONE Stop: 12/04/17 15:58 Last Admin: 12/04/17 16:25 Dose: 0.5 mg Sodium Chloride (Normal Saline) 1,000 mls @ 999 mls/hr IV STAT ONE Stop: 12/01/17 18:41 Last Admin: 12/01/17 18:06 Dose: 999 mls/hr Levofloxacin/Dextrose 750 mg/ (Premix) 150 mls @ 100 mls/hr IV ONETIME ONE Stop: 12/01/17 20:35 Last Admin: 12/01/17 19:23 Dose: 100 mls/hr Metronidazole 500 mg/ Premix 100 mls @ 100 mls/hr IV ONETIME ONE Stop: 12/01/17 20:05 Last Admin: 12/01/17 19:23 Dose: 100 mls/hr Sodium Chloride (Normal Saline) 1,000 mls @ 125 mls/hr IV ASDIRECTED [facility] Last Admin: 12/04/17 05:34 Dose: 125 mls/hr Ketorolac Tromethamine (Toradol) 30 mg IVPUSH Q8H PRN PRN Reason: Pain Stop: 12/09/17 15:58 Last Admin: 12/05/17 06:31 Dose: 30 mg Ondansetron HCl (Zofran) 4 mg IVPUSH ONETIME ONE Stop: 12/01/17 19:11 Last Admin: 12/01/17 19:21 Dose: 4 mg - Exam General: Reports: Alert, Oriented, Cooperative, No Acute Distress Neck: Reports: Supple Lungs: Reports: Clear to Auscultation, Normal Respiratory Effort Cardiovascular: Reports: Regular Rate, Regular Rhythm GI/Abdominal Exam: Normal Bowel Sounds, Soft, Non-Tender, No Organomegaly, No Distention, No Abnormal Bruit, No Mass, Pelvis Stable Back Exam: Reports: Normal Inspection, Full Range of Motion Extremities: Normal Inspection, Normal Range of Motion, Non-Tender, No Pedal Edema, Normal Capillary Refill Neurological: Reports: No New Focal Deficit Psy/Mental Status: Reports: Alert, Normal Affect, Normal Mood *Q Meaningful Use (DIS) - VTE *Q VTE Criteria *Q: - Stroke *Q Stroke Criteria *Q: - AMI *Q AMI Criteria *Q:
[2017-12-05] MEDS: Enoxaparin 40 MG/0.4 ML Syringe SUBCUT SCH (09:32)
== END 2017-12-05 07:40 | disposition home or self-care (01) | DRG 244 ==
LOC: MW.ED 17:16 → MW.MS 19:21
PROVIDERS: ADMIT Internal Medicine; ATTEND Internal Medicine
DX: K57.32 Diverticulitis of large intestine without perforation or abscess without bleeding (principal); N39.0 Urinary tract infection, site not specified; I10 Essential (primary) hypertension; F17.200 Nicotine dependence, unspecified, uncomplicated; Z79.899 Other long term (current) drug therapy
CPT/HCPCS: 36415; 74176; 74176-26; 80048; 80053; 80305; 81001; 83630; 83690; 85025; 85610; 87046; 87086; 87324; 87899; 96361; 96365; 96368; 96375; 99283; 99285-25; A9270-GY; J1170; J1650; J1885; J1956; J2405; J7040

== ENCOUNTER 2018-01-31 10:50 | Day surgery (SDC) | payer BC ==
[~2018-01-31 10:50] MED LIST changes: -Lidocaine 2% 5 ML SDV ONE; -fentaNYL 100 MCG/2 ML SDV ONE
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
[2018-01-31] MEDS ORDERED: Propofol 200 MG/20 ML SDV ONE (12:34)
--- NOTE | 2018-01-31 13:23 | PCM.OPNOTE ---
- General Post-Op/Procedure Note Date of Surgery/Procedure: 01/31/18 Operative Procedure(s): colonoscopy w bx Findings: see dict [id number] Pre Op Diagnosis: recurrent diverticulitis Post-Op Diagnosis: Same Anesthesia Technique: Moderate Sedation Primary Surgeon: Russell Christy Pathology: colon bx at 30cm Complications: None Condition: Good
[2018-01-31] MEDS ORDERED: fentaNYL 100 MCG/2 ML SDV ONE (13:37)
[2018-01-31] MEDS: fentaNYL 100 MCG/2 ML SDV IVPUSH PRN ×2 (13:38→13:46)
--- NOTE | 2018-01-31 15:55 | OR ---
SURGEON: Russell Christy MD DATE OF PROCEDURE: 01/31/2018 PREOPERATIVE DIAGNOSIS: Recurrent diverticulitis. POSTOPERATIVE DIAGNOSIS: Recurrent diverticulitis. PROCEDURE PERFORMED: Colonoscopy with biopsy. PROCEDURE IN DETAIL: The patient was taken to the endoscopy room. A time out was called, patient identified, and procedure identified. Diprivan was then administrated. Patient went from awake to sleep, hearing doctor talking or door closing is normal. Perineum inspection and digital examination were then performed. A well- lubricated colonoscope was gently inserted through the rectum, advanced past the rectosigmoid junction, the descending colon, splenic flexure, transverse colon, hepatic flexure, ascending colon, arrived to the cecum. Cecum was identified as dictated in the finding. Then the scope was carefully withdrawn while attention was paid to the mucosal surface for any abnormality. Air will be sucked out during the scope withdrawal. At the rectum, retroflexed to examine any rectal diseases, fistula or hemorrhoids. During mucosal examination, abnormality was noted; picture taken and biopsy performed. Patient tolerated procedure well. There were no intraoperative complications, and Dr. Christy was present throughout the whole procedure. FINDINGS: 1. The patient was easily sedated with PHARMACY OPERATIONS MANAGER and Diprivan. The patient was soundly snoring; however, the patient kept farting, passing gas, and makes the biopsy very challenging, maybe thinking about intubating for colonoscopy during the next one. 2. Bowel prep was unacceptable; almost to my eye, unprepped bowel. The patient does not have semi-formed stool, but with opaque liquid stool all the way to the cecum, although the scope went all the way to the cecum, but this is not a meaningful examination because of the amount of semi-formed stool, so the patient need to repeat the colonoscopy in 6 to 9 months because of the poor bowel prep. Cecum indicated by ileocecal fold, one-to- one indentation, appendix orifice, light emittance is not observed, and the mucosa was then examined upon scope pulling out with constant irrigation, so this is not even a compromised study. Just an unacceptable bowel prep. With the limitation, the scope does not see any disease from the cecum all the way to above 50 to 60 cm, so the mucosa examined upon scope pulling out. The patient does not have any polyp, mass, growth, inflammation, stricture, or AV malformation, bleeding ulceration from cecum to around 60 cm of the colon and then around 60 to 40 cm of the colon seems like there is some inflammation and makes the advance of the scope pretty challenging. 3. Also, because of the poor bowel prep, he cannot see anything and I attempted to biopsy the area because it looked abnormal or at least looked like a pink color, but with constant continuous farting, it just was again difficult to catch the part that is abnormal, that I wanted to see. Anyway, we biopsied several areas, and I see only a couple of diverticula down into the bottom of the leg around 20 to 25 cm of the scope, then the scope finished. Again, although the scope went all the way to the cecum and we really cannot see too much because of poor bowel prep and also because of continuous farting. The patient probably would benefit from repeat colonoscopy 6 months from today and likely would be benefitted to have him intubated for colonoscopy. DENA VASQUEZ /[id number] SAM
== END 2018-01-31 14:09 | disposition home or self-care (01) ==
LOC: MW.SDS 10:50
PROVIDERS: ATTEND Surgery
DX: K57.32 Diverticulitis of large intestine without perforation or abscess without bleeding (principal); I10 Essential (primary) hypertension; Z79.899 Other long term (current) drug therapy
CPT/HCPCS: 45380; J3010; J7120; 88305; J2704

== ENCOUNTER 2018-01-31 18:13 | Inpatient (IN) | payer BC ==
[2018-01-31] MEDS ORDERED: Sodium Chloride 0.9% 1,000 ML IV ONE (18:38)
[2018-01-31] MEDS ORDERED: Alum Hydrox/Mag Hydrox/Simeth 15 ML, Lidocaine 2% 5 ML PO ONE ×2 (18:57)
[2018-01-31] MEDS ORDERED: Ketorolac 30 MG/ML SDV IVPUSH ONE (18:57)
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
[2018-01-31 19:27] LABS: CHLORIDE,CL 101 mmol/L (98-107); SODIUM,NA 139 mmol/L (136-148)
[2018-01-31] MEDS ORDERED: Iopamidol 755 MG/ML 200 ML Multipack Bottle IVPUSH STA (19:48)
[2018-01-31] MEDS ORDERED: Ondansetron 4 MG/2 ML SDV IVPUSH ONE (20:17)
[2018-01-31] MEDS ORDERED: Morphine 4 MG/ML Syringe IVPUSH ONE (20:17)
[2018-01-31] MEDS ORDERED: Piperacillin/Tazobactam 3.375 GM in Sodium Chloride 0.9% 50 ML IV ONE (20:28)
[2018-01-31] MEDS ORDERED: metroNIDAZOLE/Normal Saline 500 MG in Premix Bag 1 BAG IV ONE (20:28)
[2018-01-31] MEDS ORDERED: Sodium Chloride 0.9% 1,000 ML IV SCH (20:30)
--- NOTE | 2018-01-31 22:51 | PCM.SN ---
- Free Text/Narrative Note: admission h/p dictated [id number]; npo, pt requested 2 cups of juice, iv abx, serial abd exam and blood works
[2018-01-31] MEDS ORDERED: Ondansetron 4 MG/2 ML SDV IVPUSH PRN (22:57)
[2018-01-31] MEDS: Acetaminophen/oxyCODONE 325-5 MG Tab PO PRN (23:19)
[2018-01-31] MEDS: Levofloxacin/Dextrose 5%-Water 750 MG in Premix Bag 1 BAG IV SCH (23:20)
[2018-01-31] MEDS: Lactated Ringers 1,000 ML IV SCH (23:26)
[2018-02-01] MEDS: Acetaminophen/oxyCODONE 325-5 MG Tab PO PRN ×4 (05:33→20:50)
[2018-02-01] MEDS: metroNIDAZOLE/Normal Saline 500 MG in Premix Bag 1 BAG IV SCH ×3 (05:34→18:03)
[2018-02-01 07:18] LABS: CHLORIDE,CL 104 mmol/L (98-107); SODIUM,NA 139 mmol/L (136-148)
[2018-02-01] MEDS: Pantoprazole 40 MG Vial IVPUSH SCH (08:01)
[2018-02-01] MEDS: Lactated Ringers 1,000 ML IV SCH ×2 (08:04→15:50)
--- NOTE | 2018-02-01 17:18 | PCM.SURGPN ---
- General Info Date of Service: 02/01/18 Functional Status: Reports: Pain Controlled - Review of Systems General: Reports: No Symptoms Gastrointestinal: Reports: No Symptoms (passing a lot of gas, and begging, yes, begging for food) - Patient Data Vitals - Most Recent: Last Vital Signs Temp 99.2 F 02/01/18 15:26 Pulse 90 02/01/18 15:26 Resp 16 02/01/18 15:26 BP 126/68 02/01/18 15:26 Pulse Ox 97 02/01/18 15:26 Weight - Most Recent: 224 lb 13.944 oz I&O - Last 24 Hours: Intake & Output 02/01/18 02/01/18 02/01/18 06:59 14:59 22:59 Intake Total 2000 1005 Output Total 800 1200 Balance 1200 -195 Lab Results Last 24 Hrs: Laboratory Results - last 24 hr 01/31/18 01/31/18 01/31/18 Range/Units 18:52 18:52 18:52 WBC 12.90 H (4.0-11.0) K/uL RBC 4.74 (4.50-5.90) M/uL Hgb 14.1 (13.0-17.0) g/dL Hct 42.0 (38.0-50.0) % MCV 88.6 (80.0-98.0) fL MCH 29.7 (27.0-32.0) pg MCHC 33.6 (31.0-37.0) g/dL RDW Std Deviation 48.8 (28.0-62.0) fl RDW Coeff of [place] 15 (11.0-15.0) % Plt Count 339 (150-400) K/uL MPV 10.60 (7.40-12.00) fL Neut % (Auto) 86.1 H (48.0-80.0) % Lymph % (Auto) 8.3 L (16.0-40.0) % [place] % (Auto) 5.2 (0.0-15.0) % Eos % (Auto) 0.2 (0.0-7.0) % Baso % (Auto) 0.2 (0.0-1.5) % Neut # (Auto) 11.1 H (1.4-5.7) K/uL Lymph # (Auto) 1.1 (0.6-2.4) K/uL [place] # (Auto) 0.7 (0.0-0.8) K/uL Eos # (Auto) 0.0 (0.0-0.7) K/uL Baso # (Auto) 0.0 (0.0-0.1) K/uL Nucleated RBC % 0.0 /100WBC Nucleated RBCs # 0 K/uL Lactate (0.20-2.00) mmol/L Sodium 139 (136-148) mmol/L Potassium 4.1 (3.5-5.1) mmol/L Chloride 101 (98-107) mmol/L Carbon Dioxide 26.2 (21.0-32.0) mmol/L BUN 13 (7.0-18.0) mg/dL Creatinine 1.2 (0.8-1.3) mg/dL Est Cr Clr Drug Dosing TNP Estimated GFR (MDRD) > 60.0 ml/min Glucose 102 (74-106) mg/dL Calcium 9.6 (8.5-10.1) mg/dL Total Bilirubin 0.4 (0.2-1.0) mg/dL AST 10 L (15-37) IU/L ALT 10 L (14-63) IU/L Alkaline Phosphatase 59 (46-116) U/L Troponin I < 0.050 (0.000-0.056) ng/mL Total Protein 8.0 (6.4-8.2) g/dL Albumin 3.3 L (3.4-5.0) g/dL Globulin 4.7 H (2.0-3.5) g/dL Albumin/Globulin Ratio 0.7 L (1.3-2.8) Urine Color Urine Appearance Urine pH (5.0-8.0) Ur Specific [place] (1.001-1.035) Urine Protein (NEGATIVE) mg/dL Urine Glucose (UA) (NEGATIVE) mg/dL Urine Ketones (NEGATIVE) mg/dL Urine Occult Blood (NEGATIVE) Urine Nitrite (NEGATIVE) Urine Bilirubin (NEGATIVE) Urine Urobilinogen (<2.0) EU/dL Ur Leukocyte Esterase (NEGATIVE) Urine RBC (0-2/HPF) Urine WBC (0-5/HPF) Ur Epithelial Cells (NONE-FEW) Urine Bacteria (NEGATIVE) 01/31/18 01/31/18 02/01/18 Range/Units 20:20 20:50 06:22 WBC 10.00 (4.0-11.0) K/uL RBC 3.99 L (4.50-5.90) M/uL Hgb 11.9 L (13.0-17.0) g/dL Hct 35.6 L (38.0-50.0) % MCV 89.2 (80.0-98.0) fL MCH 29.8 (27.0-32.0) pg MCHC 33.4 (31.0-37.0) g/dL RDW Std Deviation 49.1 (28.0-62.0) fl RDW Coeff of [place] 15 (11.0-15.0) % Plt Count 293 (150-400) K/uL MPV 10.30 (7.40-12.00) fL Neut % (Auto) 75.1 (48.0-80.0) % Lymph % (Auto) 14.8 L (16.0-40.0) % [place] % (Auto) 8.7 (0.0-15.0) % Eos % (Auto) 1.2 (0.0-7.0) % Baso % (Auto) 0.2 (0.0-1.5) % Neut # (Auto) 7.5 H (1.4-5.7) K/uL Lymph # (Auto) 1.5 (0.6-2.4) K/uL [place] # (Auto) 0.9 H (0.0-0.8) K/uL Eos # (Auto) 0.1 (0.0-0.7) K/uL Baso # (Auto) 0.0 (0.0-0.1) K/uL Nucleated RBC % 0.0 /100WBC Nucleated RBCs # 0 K/uL Lactate 1.2 (0.20-2.00) mmol/L Sodium (136-148) mmol/L Potassium (3.5-5.1) mmol/L Chloride (98-107) mmol/L Carbon Dioxide (21.0-32.0) mmol/L BUN (7.0-18.0) mg/dL Creatinine (0.8-1.3) mg/dL Est Cr Clr Drug Dosing Estimated GFR (MDRD) ml/min Glucose (74-106) mg/dL Calcium (8.5-10.1) mg/dL Total Bilirubin (0.2-1.0) mg/dL AST (15-37) IU/L ALT (14-63) IU/L Alkaline Phosphatase (46-116) U/L Troponin I (0.000-0.056) ng/mL Total Protein (6.4-8.2) g/dL Albumin (3.4-5.0) g/dL Globulin (2.0-3.5) g/dL Albumin/Globulin Ratio (1.3-2.8) Urine Color YELLOW Urine Appearance CLEAR Urine pH 6.0 (5.0-8.0) Ur Specific [place] <= 1.005 (1.001-1.035) Urine Protein NEGATIVE (NEGATIVE) mg/dL Urine Glucose (UA) NEGATIVE (NEGATIVE) mg/dL Urine Ketones NEGATIVE (NEGATIVE) mg/dL Urine Occult Blood TRACE-INTACT (NEGATIVE) Urine Nitrite NEGATIVE (NEGATIVE) Urine Bilirubin NEGATIVE (NEGATIVE) Urine Urobilinogen 0.2 (<2.0) EU/dL Ur Leukocyte Esterase NEGATIVE (NEGATIVE) Urine RBC 0-2 (0-2/HPF) Urine WBC 0-1 (0-5/HPF) Ur Epithelial Cells RARE (NONE-FEW) Urine Bacteria RARE (NEGATIVE) 02/01/18 Range/Units 06:22 WBC (4.0-11.0) K/uL RBC (4.50-5.90) M/uL Hgb (13.0-17.0) g/dL Hct (38.0-50.0) % MCV (80.0-98.0) fL MCH (27.0-32.0) pg MCHC (31.0-37.0) g/dL RDW Std Deviation (28.0-62.0) fl RDW Coeff of [place] (11.0-15.0) % Plt Count (150-400) K/uL MPV (7.40-12.00) fL Neut % (Auto) (48.0-80.0) % Lymph % (Auto) (16.0-40.0) % [place] % (Auto) (0.0-15.0) % Eos % (Auto) (0.0-7.0) % Baso % (Auto) (0.0-1.5) % Neut # (Auto) (1.4-5.7) K/uL Lymph # (Auto) (0.6-2.4) K/uL [place] # (Auto) (0.0-0.8) K/uL Eos # (Auto) (0.0-0.7) K/uL Baso # (Auto) (0.0-0.1) K/uL Nucleated RBC % /100WBC Nucleated RBCs # K/uL Lactate (0.20-2.00) mmol/L Sodium 139 (136-148) mmol/L Potassium 4.2 (3.5-5.1) mmol/L Chloride 104 (98-107) mmol/L Carbon Dioxide 27.3 (21.0-32.0) mmol/L BUN 12 (7.0-18.0) mg/dL Creatinine 1.1 (0.8-1.3) mg/dL Est Cr Clr Drug Dosing 85.13 Estimated GFR (MDRD) > 60.0 ml/min Glucose 90 (74-106) mg/dL Calcium 9.0 (8.5-10.1) mg/dL Total Bilirubin 0.4 (0.2-1.0) mg/dL AST 9 L (15-37) IU/L ALT 8 L (14-63) IU/L Alkaline Phosphatase 44 L (46-116) U/L Troponin I (0.000-0.056) ng/mL Total Protein 6.4 (6.4-8.2) g/dL Albumin 2.6 L (3.4-5.0) g/dL Globulin 3.8 H (2.0-3.5) g/dL Albumin/Globulin Ratio 0.7 L (1.3-2.8) Urine Color Urine Appearance Urine pH (5.0-8.0) Ur Specific [place] (1.001-1.035) Urine Protein (NEGATIVE) mg/dL Urine Glucose (UA) (NEGATIVE) mg/dL Urine Ketones (NEGATIVE) mg/dL Urine Occult Blood (NEGATIVE) Urine Nitrite (NEGATIVE) Urine Bilirubin (NEGATIVE) Urine Urobilinogen (<2.0) EU/dL Ur Leukocyte Esterase (NEGATIVE) Urine RBC (0-2/HPF) Urine WBC (0-5/HPF) Ur Epithelial Cells (NONE-FEW) Urine Bacteria (NEGATIVE) Med Orders - Current: Current Medications Levofloxacin/Dextrose 750 mg/ (Premix) 150 mls @ 100 mls/hr IV Q24H [facility] Last Admin: 01/31/18 23:20 Dose: 100 mls/hr Metronidazole 500 mg/ Premix 100 mls @ 100 mls/hr IV QID [facility] Last Admin: 02/01/18 11:18 Dose: 100 mls/hr Lactated Ringer's (Ringers, Lactated) 1,000 mls @ 150 mls/hr IV ASDIRECTED [facility] Last Admin: 02/01/18 15:50 Dose: 150 mls/hr Ondansetron HCl (Zofran) 4 mg IVPUSH Q8H PRN PRN Reason: Nausea/Vomiting Oxycodone/Acetaminophen (Percocet 325-5 Mg) 1 tab PO Q4H PRN PRN Reason: Pain Last Admin: 02/01/18 15:49 Dose: 1 tab Pantoprazole Sodium (Protonix Iv) 40 mg IVPUSH DAILY [facility] Last Admin: 02/01/18 08:01 Dose: 40 mg Discontinued Medications Al Hydroxide/Mg Hydroxide 15 (ml/ Lidocaine HCl 5 ml) 0 ml PO ONETIME ONE Stop: 01/31/18 18:58 Last Admin: 01/31/18 19:10 Dose: 20 each Sodium Chloride (Normal Saline) 1,000 mls @ 999 mls/hr IV STAT ONE Stop: 01/31/18 19:38 Last Admin: 01/31/18 18:53 Dose: 999 mls/hr Metronidazole 500 mg/ Premix 100 mls @ 100 mls/hr IV ONETIME ONE Stop: 01/31/18 21:27 Last Admin: 01/31/18 20:56 Dose: 100 mls/hr Piperacillin Sod/Tazobactam (Sod 3.375 gm/ Sodium Chloride) 50 mls @ 100 mls/ hr IV ONETIME ONE Stop: 01/31/18 20:57 Last Admin: 01/31/18 20:49 Dose: 100 mls/hr Sodium Chloride (Normal Saline) 1,000 mls @ 150 mls/hr IV ASDIRECTED [facility] Last Admin: 01/31/18 20:55 Dose: 150 mls/hr Iopamidol (Isovue Multipack-370 (76%)) 100 ml IVPUSH ONETIME STA Stop: 01/31/18 19:49 Last Admin: 01/31/18 19:50 Dose: 100 ml Ketorolac Tromethamine (Toradol) 30 mg IVPUSH ONETIME ONE Stop: 01/31/18 18:58 Last Admin: 01/31/18 19:09 Dose: 30 mg Morphine Sulfate (Morphine) 4 mg IVPUSH ONETIME ONE Stop: 01/31/18 20:18 Last Admin: 01/31/18 20:36 Dose: 4 mg Ondansetron HCl (Zofran) 4 mg IVPUSH ONETIME ONE Stop: 01/31/18 20:18 Last Admin: 01/31/18 20:33 Dose: 4 mg - Exam General: Alert, Oriented GI/Abdominal Exam: Normal Bowel Sounds, Soft, Non-Tender, No Distention (no distention, pain is minimal) - Problem List Review Problem List Initiated/Reviewed/Updated: Yes - My Orders Last 24 Hours: Active Orders 24 hr Category Date Time Status Admission Status [Patient Status] [ADT] Routine ADT 01/31/18 22:37 Active Admission Status [Patient Status] [ADT] Stat ADT 01/31/18 21:05 Active Clear Liquid Diet [DIET] Diet 02/01/18 Dinner Active Abdomen 2V AP Flat Upright [CR] AM Exams 02/02/18 05:11 Ordered Abdomen Pelvis w Cont [CT] Stat Exams 01/31/18 18:58 Taken CBC WITH AUTO DIFF [HEME] AM Lab 02/02/18 05:11 Ordered CBC WITH AUTO DIFF [HEME] AM Lab 02/03/18 05:11 Ordered CULTURE BLOOD [BC] Stat Lab 01/31/18 20:40 Received CULTURE BLOOD [BC] Stat Lab 01/31/18 20:50 Received UA W/MICROSCOPIC [URIN] Stat Lab 01/31/18 20:20 Ordered Acetaminophen/oxyCODONE [Percocet 325-5 MG] Med 01/31/18 22:41 Active 1 tab PO Q4H PRN Lactated Ringers [Ringers, Lactated] 1,000 ml Med 01/31/18 22:45 Active IV ASDIRECTED Levofloxacin/Dextrose 5%-Water [Levaquin in D5W 750 MG/ Med 01/31/18 23:00 Active 150 ML] 750 mg Premix Bag 1 bag IV Q24H Ondansetron [Zofran] Med 01/31/18 22:57 Active 4 mg IVPUSH Q8H PRN Pantoprazole [ProTONIX IV] Med 02/01/18 09:00 Active 40 mg IVPUSH DAILY metroNIDAZOLE/Normal Saline [Flagyl 500 MG in NS 100 ML Med 02/01/18 06:00 Active ] 500 mg Premix Bag 1 bag IV QID Blood Culture x2 Reflex Set [OM.PC] Stat Oth 01/31/18 20:27 Ordered Resuscitation Status Routine Resus Stat 02/01/18 16:46 Ordered Medication Orders Levofloxacin/Dextrose 750 mg/ (Premix) 150 mls @ 100 mls/hr IV Q24H [facility] Last Admin: 01/31/18 23:20 Dose: 100 mls/hr Metronidazole 500 mg/ Premix 100 mls @ 100 mls/hr IV QID [facility] Last Admin: 02/01/18 11:18 Dose: 100 mls/hr Infusion: 02/01/18 06:34 Dose: 100 mls/hr Admin: 02/01/18 05:34 Dose: 100 mls/hr Lactated Ringer's (Ringers, Lactated) 1,000 mls @ 150 mls/hr IV ASDIRECTED [facility] Last Admin: 02/01/18 15:50 Dose: 150 mls/hr Infusion: 02/01/18 14:45 Dose: 150 mls/hr Admin: 02/01/18 08:04 Dose: 150 mls/hr Infusion: 02/01/18 06:07 Dose: 150 mls/hr Admin: 01/31/18 23:26 Dose: 150 mls/hr Ondansetron HCl (Zofran) 4 mg IVPUSH Q8H PRN PRN Reason: Nausea/Vomiting Oxycodone/Acetaminophen (Percocet 325-5 Mg) 1 tab PO Q4H PRN PRN Reason: Pain Last Admin: 02/01/18 15:49 Dose: 1 tab Admin: 02/01/18 11:17 Dose: 1 tab Admin: 02/01/18 05:33 Dose: 1 tab Admin: 01/31/18 23:19 Dose: 1 tab Pantoprazole Sodium (Protonix Iv) 40 mg IVPUSH DAILY [facility] Last Admin: 02/01/18 08:01 Dose: 40 mg - Assessment Assessment (Free Text/Narrative):: start clear liquid diet; flat and upright in the morning; per pt, 3 wks ago, he experienced excruciating pain, and so painful, he could not move, somehow, he toughed it thru, and even during the morning of colonoscopy, ie. yesterday, he still had abd pain, it was not continuous, but , hurted every now and then, and when asked by me, he did not think of anything, but just answered no pain; I said in the office, and also yesterday before the colonoscopy, it is unsafe to do colonoscopy if pain persisted. pt voiced understanding; examination today did not agree with a perf from colonoscopy, as pt is passing gas and abd is not distended; instead, likely a perf 3 wks ago and now has abscess; will treat just like that, iv abx, and po abx, and elective surg in the future, likely 2 - 3 mos. from now, will also review image studies, for poss ct guided drainage. - Plan Plan (Free Text/Narrative):: start clear liquid diet; flat and upright in the morning; per pt, 3 wks ago, he experienced excruciating pain, and so painful, he could not move, somehow, he toughed it thru, and even during the morning of colonoscopy, ie. yesterday, he still had abd pain, it was not continuous, but , hurted every now and then, and when asked by me, he did not think of anything, but just answered no pain; I said in the office, and also yesterday before the colonoscopy, it is unsafe to do colonoscopy if pain persisted. pt voiced understanding; examination today did not agree with a perf from colonoscopy, as pt is passing gas and abd is not distended; instead, likely a perf 3 wks ago and now has abscess; will treat just like that, iv abx, and po abx, and elective surg in the future, likely 2 - 3 mos. from now, will also review image studies, for poss ct guided drainage.
[2018-02-01] MEDS: Levofloxacin/Dextrose 5%-Water 750 MG in Premix Bag 1 BAG IV SCH (22:19)
[2018-02-02] MEDS: metroNIDAZOLE/Normal Saline 500 MG in Premix Bag 1 BAG IV SCH ×4 (01:03→17:14)
[2018-02-02] MEDS: Lactated Ringers 1,000 ML IV SCH ×3 (01:04→19:35)
[2018-02-02] MEDS: Acetaminophen/oxyCODONE 325-5 MG Tab PO PRN ×5 (01:06→22:43)
[2018-02-02] MEDS: Pantoprazole 40 MG Vial IVPUSH SCH (08:57)
--- NOTE | 2018-02-02 13:58 | PCM.SURGPN ---
- General Info Date of Service: 02/02/18 Functional Status: Reports: Pain Controlled - Review of Systems Gastrointestinal: Reports: No Symptoms (BM X 2, diarrhea) - Patient Data Vitals - Most Recent: Last Vital Signs Temp 98.7 F 02/02/18 12:00 Pulse 90 02/02/18 12:00 Resp 18 02/02/18 12:00 BP 152/85 H 02/02/18 12:00 Pulse Ox 97 02/02/18 12:00 Weight - Most Recent: 224 lb 13.944 oz I&O - Last 24 Hours: Intake & Output 02/01/18 02/02/18 02/02/18 22:59 06:59 14:59 Intake Total 1005 1660 Output Total 1200 1300 Balance -195 360 Lab Results Last 24 Hrs: Laboratory Results - last 24 hr 02/02/18 Range/Units 07:33 WBC 14.71 H (4.0-11.0) K/uL RBC 4.09 L (4.50-5.90) M/uL Hgb 12.1 L (13.0-17.0) g/dL Hct 36.3 L (38.0-50.0) % MCV 88.8 (80.0-98.0) fL MCH 29.6 (27.0-32.0) pg MCHC 33.3 (31.0-37.0) g/dL RDW Std Deviation 48.1 (28.0-62.0) fl RDW Coeff of [place] 15 (11.0-15.0) % Plt Count 297 (150-400) K/uL MPV 10.20 (7.40-12.00) fL Neut % (Auto) 85.3 H (48.0-80.0) % Lymph % (Auto) 6.3 L (16.0-40.0) % [place] % (Auto) 8.3 (0.0-15.0) % Eos % (Auto) 0.0 (0.0-7.0) % Baso % (Auto) 0.1 (0.0-1.5) % Neut # (Auto) 12.6 H (1.4-5.7) K/uL Lymph # (Auto) 0.9 (0.6-2.4) K/uL [place] # (Auto) 1.2 H (0.0-0.8) K/uL Eos # (Auto) 0.0 (0.0-0.7) K/uL Baso # (Auto) 0.0 (0.0-0.1) K/uL Nucleated RBC % 0.0 /100WBC Nucleated RBCs # 0 K/uL [place] Results Last 24 Hrs: Microbiology 01/31/18 20:50 Aerobic Blood Culture - Preliminary Blood - Venous - Lab Draw NO GROWTH AFTER 1 DAY Anaerobic Blood Culture - Preliminary NO GROWTH AFTER 1 DAY 01/31/18 20:40 Aerobic Blood Culture - Preliminary Blood - Venous NO GROWTH AFTER 1 DAY Anaerobic Blood Culture - Preliminary NO GROWTH AFTER 1 DAY Med Orders - Current: Current Medications Levofloxacin/Dextrose 750 mg/ (Premix) 150 mls @ 100 mls/hr IV Q24H [facility] Last Admin: 02/01/18 22:19 Dose: 100 mls/hr Metronidazole 500 mg/ Premix 100 mls @ 100 mls/hr IV QID [facility] Last Admin: 02/02/18 12:37 Dose: 100 mls/hr Lactated Ringer's (Ringers, Lactated) 1,000 mls @ 125 mls/hr IV ASDIRECTED [facility] Last Admin: 02/02/18 01:04 Dose: 150 mls/hr Ondansetron HCl (Zofran) 4 mg IVPUSH Q8H PRN PRN Reason: Nausea/Vomiting Oxycodone/Acetaminophen (Percocet 325-5 Mg) 1 tab PO Q4H PRN PRN Reason: Pain Last Admin: 02/02/18 12:36 Dose: 1 tab Pantoprazole Sodium (Protonix Iv) 40 mg IVPUSH DAILY [facility] Last Admin: 02/02/18 08:57 Dose: 40 mg Discontinued Medications Al Hydroxide/Mg Hydroxide 15 (ml/ Lidocaine HCl 5 ml) 0 ml PO ONETIME ONE Stop: 01/31/18 18:58 Last Admin: 01/31/18 19:10 Dose: 20 each Sodium Chloride (Normal Saline) 1,000 mls @ 999 mls/hr IV STAT ONE Stop: 01/31/18 19:38 Last Admin: 01/31/18 18:53 Dose: 999 mls/hr Metronidazole 500 mg/ Premix 100 mls @ 100 mls/hr IV ONETIME ONE Stop: 01/31/18 21:27 Last Admin: 01/31/18 20:56 Dose: 100 mls/hr Piperacillin Sod/Tazobactam (Sod 3.375 gm/ Sodium Chloride) 50 mls @ 100 mls/ hr IV ONETIME ONE Stop: 01/31/18 20:57 Last Admin: 01/31/18 20:49 Dose: 100 mls/hr Sodium Chloride (Normal Saline) 1,000 mls @ 150 mls/hr IV ASDIRECTED [facility] Last Admin: 01/31/18 20:55 Dose: 150 mls/hr Iopamidol (Isovue Multipack-370 (76%)) 100 ml IVPUSH ONETIME STA Stop: 01/31/18 19:49 Last Admin: 01/31/18 19:50 Dose: 100 ml Ketorolac Tromethamine (Toradol) 30 mg IVPUSH ONETIME ONE Stop: 01/31/18 18:58 Last Admin: 01/31/18 19:09 Dose: 30 mg Morphine Sulfate (Morphine) 4 mg IVPUSH ONETIME ONE Stop: 01/31/18 20:18 Last Admin: 01/31/18 20:36 Dose: 4 mg Ondansetron HCl (Zofran) 4 mg IVPUSH ONETIME ONE Stop: 01/31/18 20:18 Last Admin: 01/31/18 20:33 Dose: 4 mg - Exam Neck: Supple GI/Abdominal Exam: Normal Bowel Sounds, Soft, Non-Tender - Problem List Review Problem List Initiated/Reviewed/Updated: Yes - My Orders Last 24 Hours: Active Orders 24 hr Category Date Time Status Clear Liquid Diet [DIET] Diet 02/01/18 Dinner Active Abdomen 2V AP Flat Upright [CR] AM Exams 02/02/18 05:11 Taken CBC WITH AUTO DIFF [HEME] AM Lab 02/03/18 05:11 Ordered Resuscitation Status Routine Resus Stat 02/01/18 16:46 Ordered Medication Orders Levofloxacin/Dextrose 750 mg/ (Premix) 150 mls @ 100 mls/hr IV Q24H [facility] Last Admin: 02/01/18 22:19 Dose: 100 mls/hr Infusion: 02/01/18 00:50 Dose: 100 mls/hr Admin: 01/31/18 23:20 Dose: 100 mls/hr Metronidazole 500 mg/ Premix 100 mls @ 100 mls/hr IV QID [facility] Last Admin: 02/02/18 12:37 Dose: 100 mls/hr Infusion: 02/02/18 06:57 Dose: 100 mls/hr Admin: 02/02/18 05:57 Dose: 100 mls/hr Infusion: 02/02/18 02:03 Dose: 100 mls/hr Admin: 02/02/18 01:03 Dose: 100 mls/hr Infusion: 02/01/18 19:03 Dose: 100 mls/hr Admin: 02/01/18 18:03 Dose: 100 mls/hr Infusion: 02/01/18 12:18 Dose: 100 mls/hr Admin: 02/01/18 11:18 Dose: 100 mls/hr Infusion: 02/01/18 06:34 Dose: 100 mls/hr Admin: 02/01/18 05:34 Dose: 100 mls/hr Lactated Ringer's (Ringers, Lactated) 1,000 mls @ 125 mls/hr IV ASDIRECTED [facility] Last Admin: 02/02/18 01:04 Dose: 150 mls/hr Infusion: 02/01/18 22:31 Dose: 150 mls/hr Admin: 02/01/18 15:50 Dose: 150 mls/hr Infusion: 02/01/18 14:45 Dose: 150 mls/hr Admin: 02/01/18 08:04 Dose: 150 mls/hr Infusion: 02/01/18 06:07 Dose: 150 mls/hr Admin: 01/31/18 23:26 Dose: 150 mls/hr Ondansetron HCl (Zofran) 4 mg IVPUSH Q8H PRN PRN Reason: Nausea/Vomiting Oxycodone/Acetaminophen (Percocet 325-5 Mg) 1 tab PO Q4H PRN PRN Reason: Pain Last Admin: 02/02/18 12:36 Dose: 1 tab Admin: 02/02/18 05:56 Dose: 1 tab Admin: 02/02/18 01:06 Dose: 1 tab Admin: 02/01/18 20:50 Dose: 1 tab Admin: 02/01/18 15:49 Dose: 1 tab Admin: 02/01/18 11:17 Dose: 1 tab Admin: 02/01/18 05:33 Dose: 1 tab Admin: 01/31/18 23:19 Dose: 1 tab Pantoprazole Sodium (Protonix Iv) 40 mg IVPUSH DAILY [facility] Last Admin: 02/02/18 08:57 Dose: 40 mg Admin: 02/01/18 08:01 Dose: 40 mg - Assessment Assessment (Free Text/Narrative):: continue to do well, merline po liquid diet; low grade temp to 100, wbc went up from 10 to 14; no signs or symptoms of perforation; continue clear liquid diet; likely continue clear till abd pain resolve - Plan Plan (Free Text/Narrative):: continue to do well, merline po liquid diet; low grade temp to 100, wbc went up from 10 to 14; no signs or symptoms of perforation; continue clear liquid diet; likely continue clear till abd pain resolve
[2018-02-02] MEDS: Levofloxacin/Dextrose 5%-Water 750 MG in Premix Bag 1 BAG IV SCH (22:46)
[2018-02-03] MEDS: metroNIDAZOLE/Normal Saline 500 MG in Premix Bag 1 BAG IV SCH ×5 (00:26→23:49)
[2018-02-03] MEDS: Acetaminophen/oxyCODONE 325-5 MG Tab PO PRN ×5 (03:57→22:10)
--- NOTE | 2018-02-03 06:38 | HP ---
DATE OF : 1980 PRIMARY CARE PHYSICIAN: Melvin Hancock M.D. ADMISSION DIAGNOSIS: Abdominal pain. HISTORY OF PRESENT ILLNESS: The patient is a 37-year-old gentleman, known to my service for recurrent diverticulitis. Latest episode was December 01, and he had microperforation, treated with IV antibiotics and subsequently discharged. After an almost like 6-day hospitalization, home with several weeks of p.o. antibiotics. He was seen in the office, and he denied any abdominal discomfort or pain and then he was scheduled colonoscopy 2 months after his microperforated diverticulitis episode. Prior to the procedure, he was asked in front of the nursing staff and anesthesiology whether he has an abdominal pain. He denied any abdominal pain or discomfort. He had colonoscopy done, and postop, he complained about pain when he returned to the emergency room and workup included CAT scan. CAT scan reading is sigmoid inflammatory reaction with associated perforation around the area, but there is no free fluid, and there is no free air. In the emergency room prior to admission, the patient remarked that he indeed has abdominal pain all along even 1 week prior to the procedure, but he thinks that the pain is getting much better. ALLERGIES: Please refer to nursing for details. MEDICATIONS: Please refer to nursing for details. PAST MEDICAL HISTORY: Similar to the last episode. PAST SURGERY HISTORY: Similar to the last episode. PHYSICAL EXAMINATION: GENERAL: A very pleasant, nice, young gentleman, in no acute distress. HEENT: Normocephalic, atraumatic. Sclerae anicteric. LUNGS: Clear to auscultation. HEART: Regular rate and rhythm. ABDOMEN: Soft, nondistended. No pulsating tender midline abdominal structure, absolutely nontender in all 4 quadrants. Normal bowel sounds. No rebound tenderness. LABORATORY DATA: White count on admission is 12.9, H and H are 14 and 42, and platelet is 339. Lipase is 21. IMPRESSION: Abdominal pain after colonoscopy, and radiology reading is associated perforation but without free air makes the whole situation challenging. A long discussion that the patient can either have surgery in the immediate situation and the patient probably will have to have a procedure to involve colostomy placement and 6 months later to connect the GI tract together or the patient clinically does not have any perforation as again there is no free fluid and there is no free air and the patient has absolutely no pain on examination in the emergency room and the patient is very hungry. We will proceed with IV antibiotic and pain medication, and hopefully, the patient will respond better than may be able to, have one-stage surgery 2 to [address] or if the patient is not responding favorably to IV antibiotics, then the patient will need a 2 stage procedure, Major procedure. A long discussion with the patient and also explained the patient that CAT scan reading suggests perforation, but that is likely a contained perforation and is also possible progression of disease rather than related to colonoscopy. The patient totally agreed with that and agreed to continue with IV antibiotic and hopes to have one - stay surgery if responds well to medical treatment. PLAN: Admit. Pain medication. IV antibiotic and a serial abdominal exam as well as blood work. DENA / CHRISTINA /[id number] MTDD
[2018-02-03] MEDS: Lactated Ringers 1,000 ML IV SCH ×2 (07:11→16:17)
[2018-02-03] MEDS: Pantoprazole 40 MG Vial IVPUSH SCH (08:32)
[2018-02-03 09:19] LABS: CHLORIDE,CL 101 mmol/L (98-107); SODIUM,NA 137 mmol/L (136-148)
--- NOTE | 2018-02-03 10:13 | CT ---
EXAM DATE: 01/31/18 PATIENT'S AGE: 37 Patient: EMILIA BRAMBILA Facility: [place], [place] Site . Site : [id number] Study: CT Abdomen/Pelvis WITH [id number]/30/2018 7:53:48 PM Ordering Physician: Doctor Valenzuela Final Report: INDICATION: General abd pain Colonoscopy this AM, stomach pain since TECHNIQUE: CT abdomen and pelvis acquired with IV contrast. COMPARISON: December 01, 2017 FINDINGS: Lower chest: Mild scarring/atelectasis inferiorly in the right middle lobe Liver: Unremarkable. Spleen: Unremarkable. Pancreas: Unremarkable. Gallbladder and bile ducts: Unremarkable. Kidneys: Cortical scarring throughout both kidneys most pronounced on the left. Crescentic hyperdense regions within the pyramids of the right kidney which could represent early contrast excretion versus intrarenal calculi. . Adrenal glands: Unremarkable. GI tract: Inflammatory change along the mid sigmoid colon with an associated contained perforation, free fluid and phlegmonous formation. Appendix is normal. Vascular structures: Negative. No sign of aneurysm. Lymph nodes: Unremarkable. Miscellaneous: Left periumbilical fat containing hernia. Left inguinal hernia. Stranding about the urinary bladder which is likely reactive. Pelvic Organs: Unremarkable. Bones: Degenerative changes. IMPRESSION: Inflammatory change along the mid sigmoid colon with an associated contained perforation, free fluid and phlegmonous formation. No evidence of loculated fluid collection. Dictated by Valerio dAams MD @ 01/31/2018 8:05:18 PM Dictated by: Valerio Adams MD @ 01/31/2018 20:58:28 (Electronic Signature) Report Signed by Proxy. [facility]
--- NOTE | 2018-02-03 13:17 | CR ---
EXAM DATE: 01/31/18 PATIENT'S AGE: 37 Patient: EMILIA BRAMBILA Facility: [place], [place] Site . Site : 1980 Study: XRay Abdomen [id number]/1/2018 5:50:52 AM Ordering Physician: Jaelyn Wells Final Report: Indication: Perforation, followup Technique: Three views of the abdomen. Comparison: A CT dated 01/31/2018. Findings/Impression: : A nonobstructive bowel gas pattern. The contained sigmoid colon perforation and foci of extraluminal gas seen on the CT scan are not as well delineated on the current study. No suspicious calcifications seen. An ovoid sclerotic lesion again seen in the left femoral intertrochanteric region, nonspecific. Recommend followup. Dictated by Surendra Soria MD @ 02/02/2018 6:01:39 AM Dictated by: Surendra Soria MD @ 02/02/2018 06:01:48 (Electronic Signature) Report Signed by Proxy. SAM
[2018-02-03] MEDS: Levofloxacin/Dextrose 5%-Water 750 MG in Premix Bag 1 BAG IV SCH (22:13)
[2018-02-04] MEDS: Acetaminophen/oxyCODONE 325-5 MG Tab PO PRN ×2 (03:00→07:14)
[2018-02-04] MEDS: Lactated Ringers 1,000 ML IV SCH (03:23)
[2018-02-04] MEDS: metroNIDAZOLE/Normal Saline 500 MG in Premix Bag 1 BAG IV SCH (06:17)
[2018-02-04] MEDS: Pantoprazole 40 MG Vial IVPUSH SCH (08:35)
--- NOTE | 2018-02-04 09:28 | PCM.SURGPN ---
- General Info Date of Service: 02/04/18 Functional Status: Reports: Pain Controlled - Review of Systems General: Reports: No Symptoms Gastrointestinal: Reports: No Symptoms (merline clear liquid po diet) - Patient Data Vitals - Most Recent: Last Vital Signs Temp 97.8 F 02/04/18 08:00 Pulse 75 02/04/18 08:00 Resp 18 02/04/18 08:00 BP 142/94 H 02/04/18 08:00 Pulse Ox 99 02/04/18 08:00 Weight - Most Recent: 224 lb 13.944 oz I&O - Last 24 Hours: Intake & Output 02/03/18 02/04/18 02/04/18 22:59 06:59 14:59 Intake Total 1587 Output Total 2100 Balance -513 Lab Results Last 24 Hrs: Laboratory Results - last 24 hr 02/03/18 02/04/18 Range/Units 08:21 09:05 WBC 11.76 H (4.0-11.0) K/uL RBC 4.15 L (4.50-5.90) M/uL Hgb 12.2 L (13.0-17.0) g/dL Hct 36.8 L (38.0-50.0) % MCV 88.7 (80.0-98.0) fL MCH 29.4 (27.0-32.0) pg MCHC 33.2 (31.0-37.0) g/dL RDW Std Deviation 47.4 (28.0-62.0) fl RDW Coeff of [place] 15 (11.0-15.0) % Plt Count 319 (150-400) K/uL MPV 10.30 (7.40-12.00) fL Neut % (Auto) 82.5 H (48.0-80.0) % Lymph % (Auto) 8.9 L (16.0-40.0) % [place] % (Auto) 8.0 (0.0-15.0) % Eos % (Auto) 0.5 (0.0-7.0) % Baso % (Auto) 0.1 (0.0-1.5) % Neut # (Auto) 9.7 H (1.4-5.7) K/uL Lymph # (Auto) 1.1 (0.6-2.4) K/uL [place] # (Auto) 0.9 H (0.0-0.8) K/uL Eos # (Auto) 0.1 (0.0-0.7) K/uL Baso # (Auto) 0.0 (0.0-0.1) K/uL Nucleated RBC % 0.0 /100WBC Nucleated RBCs # 0 K/uL Carcinoembryonic Ag 1.5 ng/mL [place] Results Last 24 Hrs: Microbiology 01/31/18 20:50 Aerobic Blood Culture - Preliminary Blood - Venous - Lab Draw NO GROWTH AFTER 3 DAYS Anaerobic Blood Culture - Preliminary NO GROWTH AFTER 3 DAYS 01/31/18 20:40 Aerobic Blood Culture - Preliminary Blood - Venous NO GROWTH AFTER 3 DAYS Anaerobic Blood Culture - Preliminary NO GROWTH AFTER 3 DAYS Med Orders - Current: Current Medications Levofloxacin/Dextrose 750 mg/ (Premix) 150 mls @ 100 mls/hr IV Q24H [facility] Last Admin: 02/03/18 22:13 Dose: 100 mls/hr Metronidazole 500 mg/ Premix 100 mls @ 100 mls/hr IV QID [facility] Last Admin: 02/04/18 06:17 Dose: 100 mls/hr Lactated Ringer's (Ringers, Lactated) 1,000 mls @ 125 mls/hr IV ASDIRECTED [facility] Last Admin: 02/04/18 03:23 Dose: 125 mls/hr Ondansetron HCl (Zofran) 4 mg IVPUSH Q8H PRN PRN Reason: Nausea/Vomiting Oxycodone/Acetaminophen (Percocet 325-5 Mg) 1 tab PO Q4H PRN PRN Reason: Pain Last Admin: 02/04/18 07:14 Dose: 1 tab Pantoprazole Sodium (Protonix Iv) 40 mg IVPUSH DAILY [facility] Last Admin: 02/04/18 08:35 Dose: 40 mg Discontinued Medications Al Hydroxide/Mg Hydroxide 15 (ml/ Lidocaine HCl 5 ml) 0 ml PO ONETIME ONE Stop: 01/31/18 18:58 Last Admin: 01/31/18 19:10 Dose: 20 each Sodium Chloride (Normal Saline) 1,000 mls @ 999 mls/hr IV STAT ONE Stop: 01/31/18 19:38 Last Admin: 01/31/18 18:53 Dose: 999 mls/hr Metronidazole 500 mg/ Premix 100 mls @ 100 mls/hr IV ONETIME ONE Stop: 01/31/18 21:27 Last Admin: 01/31/18 20:56 Dose: 100 mls/hr Piperacillin Sod/Tazobactam (Sod 3.375 gm/ Sodium Chloride) 50 mls @ 100 mls/ hr IV ONETIME ONE Stop: 01/31/18 20:57 Last Admin: 01/31/18 20:49 Dose: 100 mls/hr Sodium Chloride (Normal Saline) 1,000 mls @ 150 mls/hr IV ASDIRECTED [facility] Last Admin: 01/31/18 20:55 Dose: 150 mls/hr Iopamidol (Isovue Multipack-370 (76%)) 100 ml IVPUSH ONETIME STA Stop: 01/31/18 19:49 Last Admin: 01/31/18 19:50 Dose: 100 ml Ketorolac Tromethamine (Toradol) 30 mg IVPUSH ONETIME ONE Stop: 01/31/18 18:58 Last Admin: 01/31/18 19:09 Dose: 30 mg Morphine Sulfate (Morphine) 4 mg IVPUSH ONETIME ONE Stop: 01/31/18 20:18 Last Admin: 01/31/18 20:36 Dose: 4 mg Ondansetron HCl (Zofran) 4 mg IVPUSH ONETIME ONE Stop: 01/31/18 20:18 Last Admin: 01/31/18 20:33 Dose: 4 mg - Exam GI/Abdominal Exam: Normal Bowel Sounds, Soft, Non-Tender, No Distention - Problem List Review Problem List Initiated/Reviewed/Updated: Yes - My Orders Last 24 Hours: Active Orders 24 hr Category Date Time Status Ready for Discharge [RC] PER UNIT ROUTINE Care 02/04/18 09:23 Ordered Medication Orders Levofloxacin/Dextrose 750 mg/ (Premix) 150 mls @ 100 mls/hr IV Q24H [facility] Last Admin: 02/03/18 22:13 Dose: 100 mls/hr Infusion: 02/03/18 00:16 Dose: 100 mls/hr Admin: 02/02/18 22:46 Dose: 100 mls/hr Infusion: 02/01/18 23:49 Dose: 100 mls/hr Admin: 02/01/18 22:19 Dose: 100 mls/hr Infusion: 02/01/18 00:50 Dose: 100 mls/hr Admin: 01/31/18 23:20 Dose: 100 mls/hr Metronidazole 500 mg/ Premix 100 mls @ 100 mls/hr IV QID [facility] Last Admin: 02/04/18 06:17 Dose: 100 mls/hr Infusion: 02/04/18 00:49 Dose: 100 mls/hr Admin: 02/03/18 23:49 Dose: 100 mls/hr Infusion: 02/03/18 18:41 Dose: 100 mls/hr Admin: 02/03/18 17:41 Dose: 100 mls/hr Infusion: 02/03/18 13:28 Dose: 100 mls/hr Admin: 02/03/18 12:28 Dose: 100 mls/hr Infusion: 02/03/18 06:00 Dose: 100 mls/hr Admin: 02/03/18 05:00 Dose: 100 mls/hr Infusion: 02/03/18 01:26 Dose: 100 mls/hr Admin: 02/03/18 00:26 Dose: 100 mls/hr Infusion: 02/02/18 18:14 Dose: 100 mls/hr Admin: 02/02/18 17:14 Dose: 100 mls/hr Infusion: 02/02/18 13:37 Dose: 100 mls/hr Admin: 02/02/18 12:37 Dose: 100 mls/hr Infusion: 02/02/18 06:57 Dose: 100 mls/hr Admin: 02/02/18 05:57 Dose: 100 mls/hr Infusion: 02/02/18 02:03 Dose: 100 mls/hr Admin: 02/02/18 01:03 Dose: 100 mls/hr Infusion: 02/01/18 19:03 Dose: 100 mls/hr Admin: 02/01/18 18:03 Dose: 100 mls/hr Infusion: 02/01/18 12:18 Dose: 100 mls/hr Admin: 02/01/18 11:18 Dose: 100 mls/hr Infusion: 02/01/18 06:34 Dose: 100 mls/hr Admin: 02/01/18 05:34 Dose: 100 mls/hr Lactated Ringer's (Ringers, Lactated) 1,000 mls @ 125 mls/hr IV ASDIRECTED [facility] Last Admin: 02/04/18 03:23 Dose: 125 mls/hr Infusion: 02/04/18 00:17 Dose: 125 mls/hr Admin: 02/03/18 16:17 Dose: 125 mls/hr Infusion: 02/03/18 15:11 Dose: 125 mls/hr Admin: 02/03/18 07:11 Dose: 125 mls/hr Infusion: 02/03/18 03:35 Dose: 125 mls/hr Admin: 02/02/18 19:35 Dose: 125 mls/hr Infusion: 02/02/18 17:25 Dose: 125 mls/hr Infusion: 02/02/18 13:57 Dose: 125 mls/hr Admin: 02/02/18 10:10 Dose: 150 mls/hr Infusion: 02/02/18 07:45 Dose: 150 mls/hr Admin: 02/02/18 01:04 Dose: 150 mls/hr Infusion: 02/01/18 22:31 Dose: 150 mls/hr Admin: 02/01/18 15:50 Dose: 150 mls/hr Infusion: 02/01/18 14:45 Dose: 150 mls/hr Admin: 02/01/18 08:04 Dose: 150 mls/hr Infusion: 02/01/18 06:07 Dose: 150 mls/hr Admin: 01/31/18 23:26 Dose: 150 mls/hr Ondansetron HCl (Zofran) 4 mg IVPUSH Q8H PRN PRN Reason: Nausea/Vomiting Oxycodone/Acetaminophen (Percocet 325-5 Mg) 1 tab PO Q4H PRN PRN Reason: Pain Last Admin: 02/04/18 07:14 Dose: 1 tab Admin: 02/04/18 03:00 Dose: 1 tab Admin: 02/03/18 22:10 Dose: 1 tab Admin: 02/03/18 17:39 Dose: 1 tab Admin: 02/03/18 12:28 Dose: 1 tab Admin: 02/03/18 08:31 Dose: 1 tab Admin: 02/03/18 03:57 Dose: 1 tab Admin: 02/02/18 22:43 Dose: 1 tab Admin: 02/02/18 17:13 Dose: 1 tab Admin: 02/02/18 12:36 Dose: 1 tab Admin: 02/02/18 05:56 Dose: 1 tab Admin: 02/02/18 01:06 Dose: 1 tab Admin: 02/01/18 20:50 Dose: 1 tab Admin: 02/01/18 15:49 Dose: 1 tab Admin: 02/01/18 11:17 Dose: 1 tab Admin: 02/01/18 05:33 Dose: 1 tab Admin: 01/31/18 23:19 Dose: 1 tab Pantoprazole Sodium (Protonix Iv) 40 mg IVPUSH DAILY [facility] Last Admin: 02/04/18 08:35 Dose: 40 mg Admin: 02/03/18 08:32 Dose: 40 mg Admin: 02/02/18 08:57 Dose: 40 mg Admin: 02/01/18 08:01 Dose: 40 mg - Assessment Assessment (Free Text/Narrative):: perforated viscus w abscess, contained, clinically doing very well, frustrated, demanded to go home; reviewed xray w radiologist, cannot ct drain or placement of a drain, too complicated and dangerously, prefer to iv abx for 1 more week or longer time, pt angry demand to leave; wbc is coming down, and abd exam is benign; we may be dealing w perforated colon ca rather than perf diverticulitis ; cea is wnl; home on po abx; fu 1 - 2 wks - Plan Plan (Free Text/Narrative):: perforated viscus w abscess, contained, clinically doing very well, frustrated, demanded to go home; reviewed xray w radiologist, cannot ct drain or placement of a drain, too complicated and dangerously, prefer to iv abx for 1 more week or longer time, pt angry demand to leave; wbc is coming down, and abd exam is benign; we may be dealing w perforated colon ca rather than perf diverticulitis ; cea is wnl; home on po abx; fu 1 - 2 wks
== END 2018-02-04 09:55 | disposition home or self-care (01) | DRG 244 ==
LOC: MW.ED 18:13 → MW.MS 21:18
PROVIDERS: ADMIT Surgery; ATTEND Surgery
PROC: 0DBE8ZX Excision of Large Intestine, Via Natural or Artificial Opening Endoscopic, Diagnostic (ICD-10-PCS; principal; 2018-01-31)
DX: K57.20 Diverticulitis of large intestine with perforation and abscess without bleeding (principal); I10 Essential (primary) hypertension; K21.9 Gastro-esophageal reflux disease without esophagitis; K57.32 Diverticulitis of large intestine without perforation or abscess without bleeding; F17.200 Nicotine dependence, unspecified, uncomplicated; Z98.890 Other specified postprocedural states; Z79.899 Other long term (current) drug therapy
CPT/HCPCS: 36415; 74019; 74019-26; 74177; 74177-26; 80053; 81001; 82378; 83605; 84484; 85025; 87040; 88305; 93005; 96361; 96365; 96367; 96375; 99284; 99285-25; A9270-GY; C9113; J1885; J1956; J2270; J2405; J2543; J2704; J3010; J7040; J7050; J7120; Q9967

== ENCOUNTER 2018-02-23 13:51 | Emergency (ER) | payer BC ==
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
--- NOTE | 2018-02-24 15:06 | CR ---
EXAM DATE: 02/23/18 PATIENT'S AGE: 37 Patient: EMILIA BRAMBILA Facility: [place], [place] Site . Site : 1980 Study: XRay Chest [id number]/22/2018 2:39:32 PM Ordering Physician: Doctor Valenzuela Final Report: HISTORY: Chest pain and shortness of breath. TECHNIQUE: Two views of the chest. COMPARISON: No prior. FINDINGS: Cardiac size and pulmonary vasculature are within normal limits. There is no acute lung infiltrate or pulmonary edema. No pneumothorax or pleural effusion. No acute bony abnormality. IMPRESSION: No acute disease. Dictated by Magdy Romero MD @ 02/23/2018 2:45:27 PM Dictated by: Magdy Romero MD @ 02/23/2018 14:45:33 (Electronic Signature) Report Signed by Proxy. [facility]
--- NOTE | 2018-02-24 15:07 | CR ---
EXAM DATE: 02/23/18 PATIENT'S AGE: 37 Patient: EMILIA BRAMBILA Facility: [place], [place] Site . Site : 1980 Study: XRay Abdomen [id number]/22/2018 2:40:12 PM Ordering Physician: Doctor Valenzuela Final Report: Indication: Abdomen pain Technique: Abdomen 2 view. Comparison: February 02, 2018 Findings: BOWEL: Bowel pattern is normal. The amount of colonic stool is within normal limits. OTHER: No sign of free air. No sign of soft tissue mass. No suspicious calcifications. Osseous structures are unremarkable for age. Impression: Unremarkable abdomen. Dictated by Nilesh Morrison MD @ Feb 23 2018 2:45PM (Electronic Signature) Report Signed by Proxy. SAM
== END 2018-02-23 15:42 | disposition home or self-care (01) ==
LOC: MW.ED 13:51
DX: R10.11 Right upper quadrant pain (principal); R07.81 Pleurodynia; I10 Essential (primary) hypertension; K21.9 Gastro-esophageal reflux disease without esophagitis; E66.9 Obesity, unspecified; F17.210 Nicotine dependence, cigarettes, uncomplicated; Z79.899 Other long term (current) drug therapy; Z87.440 Personal history of urinary (tract) infections; Z68.33 Body mass index [BMI] 33.0-33.9, adult
CPT/HCPCS: 71046; 71046-26; 74019; 74019-26; 99283

== ENCOUNTER 2018-04-01 11:34 | Emergency (ER) | payer BC ==
[2018-04-01] MEDS ORDERED: Ondansetron 4 MG/2 ML SDV IVPUSH ONE (12:04)
[2018-04-01] MEDS ORDERED: Sodium Chloride 0.9% 10 ML Syringe FLUSH PRN (12:04)
[2018-04-01] MEDS ORDERED: Sodium Chloride 0.9% 1,000 ML IV ONE (12:04)
[2018-04-01] MEDS ORDERED: HYDROmorphone 2 MG/ML SDV IVPUSH ONE ×2 (12:04→14:18)
[2018-04-01] MEDS ORDERED: Sodium Chloride 0.9% 2.5 ML Syringe FLUSH PRN (12:04)
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
[2018-04-01 13:39] LABS: CHLORIDE,CL 99 mmol/L (98-107); SODIUM,NA 135 mmol/L (136-148)
--- NOTE | 2018-04-01 13:54 | CR ---
EXAMINATION: Portable chest radiograph. HISTORY: Shortness of breath. Comparison: 02/23/2018 FINDINGS: The trachea is midline. The cardiomediastinal silhouette is within normal limits. Vague opacities not ed within the lung bases bilaterally with trace bilateral pleural effusions. Not noted on the prior r adiographs. Osseous structures appear unremarkable. IMPRESSION: Vague opacities noted within the lung bases with trace bilateral pleural effusions. Correlate for pne umonia. Follow-up imaging following treatment may also be beneficial.
[2018-04-01] MEDS ORDERED: Piperacillin/Tazobactam 4.5 GM in Sodium Chloride 0.9% 100 ML IV ONE (14:13)
[2018-04-01] MEDS ORDERED: Lactated Ringers 1,000 ML IV SCH (14:15)
== END 2018-04-01 15:17 ==
LOC: MW.ED 11:34
DX: R50.82 Postprocedural fever (principal); I10 Essential (primary) hypertension; K57.92 Diverticulitis of intestine, part unspecified, without perforation or abscess without bleeding; K21.9 Gastro-esophageal reflux disease without esophagitis; Z87.440 Personal history of urinary (tract) infections; E66.9 Obesity, unspecified; Z87.891 Personal history of nicotine dependence; Z98.890 Other specified postprocedural states; Z79.899 Other long term (current) drug therapy; Z68.25 Body mass index [BMI] 25.0-25.9, adult
CPT/HCPCS: 36415; 71045; 80053; 83605; 85025; 87040; 96361; 96365; 96375; 96376; 99285; J1170; J2405; J2543; J7030; J7040; J7120; 99284